=== PATIENT | female | born 1995 | race Caucasian/White ===

== ENCOUNTER → 2016-05-22 | Outpatient (CLI) | payer BC ==
[~2016-05-22] MED LIST: NORE1TAB3 PO
== END | disposition home or self-care (01) ==
LOC: C.PAPS 09:48
PROVIDERS: ATTEND Obstetrics & Gynecology
DX: Z01.419 Encounter for gynecological examination (general) (routine) without abnormal findings (principal)

== ENCOUNTER → 2016-07-24 | Outpatient (CLI) | payer OTHER | END | disposition home or self-care (01) | LOC: C.LAB 03:17 | DX: Z02.83 Encounter for blood-alcohol and blood-drug test (principal) ==

== ENCOUNTER → 2017-06-09 | Outpatient (CLI) | payer BC | END | disposition home or self-care (01) | LOC: C.LABSPEC 15:31 | PROVIDERS: ATTEND Physician Assistant | DX: Z01.419 Encounter for gynecological examination (general) (routine) without abnormal findings (principal) ==

== ENCOUNTER → 2017-06-09 | Outpatient (CLI) | payer BC | END | disposition home or self-care (01) | LOC: C.PAPS 18:04 | PROVIDERS: ATTEND Physician Assistant | DX: Z01.419 Encounter for gynecological examination (general) (routine) without abnormal findings (principal); R87.610 Atypical squamous cells of undetermined significance on cytologic smear of cervix (ASC-US) ==

== ENCOUNTER → 2017-06-12 | Outpatient (CLI) | payer BC ==
--- NOTE | 2017-06-13 07:50 | MAMMOGRAPHY REPORT ---
ULTRASOUND OF LEFT BREAST: 06/12/2017 CLINICAL HISTORY: The patient is status post ultrasound-guided biopsy of a left breast mass in 2013 which yielded a benign fibroadenoma. The patient reports that her clinician feels that the l ump has increased in size. She also reports that the lump is uncomfortable at times. COMPARISON: Comparison is made to exams dated: 01/24/2014 ultrasound biopsy and 01/05/2014 ultrasoun d - [facility]. TECHNIQUE: Real-time targeted ultrasound of the left breast was performed. FINDINGS: Real-time, high-resolution targeted ultrasound was performed of the area of the palpable leigh mp pointed out by the patient, in the left breast at approximately 1:30, 5 cm from the nipple. At th is site there is a lobulated solid hypoechoic parallel mass which measures 1.7 x 2.3 x 1.1 cm. An ec hogenic biopsy marker clip is seen within the mass. The mass is increased in size compared to the pr ior December 2013 exam, where the mass previously measured 1.6 x 0.8 x 1.3 cm. Given the interval inc rease in size, surgical excision is recommended for further evaluation. IMPRESSION: ACR BI-RADS CATEGORY 4: SUSPICIOUS - FOLLOW-UP RECOMMENDED Interval increase in size of the palpable hypoechoic mass in the left breast at approximately 1:30, n ow measuring 2.3 cm in size. The mass was previously biopsied in 2013 and yielded a benign fibroaden jason. Although this likely represents a fibroadenoma, given the interval increase in size, surgical e xcision is recommended. A phone call was made to the physician's office to confirm faxed results were received. The patient was verbally notified of the results. Racquel Monahan M.D. /:06/12/2017 09:57:27 Documentation Analyst: Racquel Monahan MD, [facility] letter sent: Abnormal 4/5 BI-RADS Code: ACR BI-RADS Category 4: Suspicious
== END | disposition home or self-care (01) ==
LOC: C.MAMM 09:31
PROVIDERS: ATTEND Physician Assistant
DX: N63.20 Unspecified lump in the left breast, unspecified quadrant (principal)

== ENCOUNTER 2021-04-10 18:58 | Inpatient (IN) ==
[2021-04-10] MEDS ORDERED: CALCIUM CARBONATE 500 MG CHEWABLE TAB PO STA (20:47)
[2021-04-10] MEDS ORDERED: CALCIUM CARBONATE 500 MG CHEWABLE TAB ONE (20:49)
--- NOTE | 2021-04-10 21:51 | History & Physical Report ---
Date of Service April 10, 2021 Assessment & Plan (1) Supervision of normal intrauterine in primigravida: Plan: Appears uncomfortable with ctx. Cervix exam per RN was 1cm, recheck was 1.5cm. Relatively unchanged from office check (fingertip). I offered patient opportunity to go home, to continue monitoring for onset of active labor. We discussed s/s active labor, and she is to call if these occur. Also offered her that we could continue to monitor her here, allow to walk the halls, and recheck cervix in a few hours. She prefers to do this, as she [place] [address] [place] [address] hospital. We discussed that onset of active labor could occur soon, or it could take some time to arrive. It is difficult to predict. History of Present Illness Chief Complaint: contractions Primary Care Provider: NO PCP 25yo @ 40 0/7, presented to L&D with complaint of contractions. Started this afternoon. Coming every 5 minutes or so, are very painful. + movement, no vaginal bleeding. No leaking fluid. Allergies Allergy/AdvReac Type Severity Reaction Status Date / Time No Known Allergies Allergy Verified 04/06/21 08:30 Home Medications Medication Instructions Recorded Confirmed Type prenat.vits,miguel,ewo-ciar-gmefo 1 tab PO DAILY 08/18/20 04/10/21 History iron 18 mg tablet 18 mg PO DAILY 03/10/21 04/10/21 History Patient History Medical History Anxiety Depression 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 1:30, 1.5 x 1cm GI bleed Surgical History H/O colposcopy with cervical biopsy 2018, mary 1 H/O left breast biopsy needle core bx, 2013, fibroadenoma H/O wisdom tooth extraction S/P colonoscopy secondary to blood in stools Family History Father Hypoglycemia Allergic rhinitis Aunt Breast cancer maternal Brother Asthma Other Anemia Dyslipidemia Denies family history of Ovarian cancer Colorectal cancer Social History Smoking Status: Former smoker Smoking End Date: 2018; Second Hand Exposure: No; Hx Alcohol Use: No Hx Substance Use: No Preferred Language: Maldivian Communication Ability: Effective 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 Beliefs That Will Affect Care: None marital status: Single marital status details: FOB: Chevy (22) [phone] Current Living Situation: Significant Other Current Living Situation Comment: lives alone current occupational status: employed current occupation: [employer] Feels Safe at Home: Yes Safety Concerns: Feels Safe At This Time Review of Systems All systems reviewed & are unremarkable except as noted in HPI & below Physical Exam Constitutional: WD/WN, vitals as above Respiratory: normal respiratory effort, lungs clear to auscultation no respiratory distress Cardiovascular: Rate/Rhythm: regular rate and regular rhythm Gastrointestinal (Abdomen): Inspection/Auscultation: abdomen normal to inspection Percussion/Palpation: abdomen soft; abdomen nontender Gravid. No s/s chorio or abruption. Skin: no rashes, warm and dry Psychiatric: A+Ox3, euthymic affect Results & Data ([facility]) Vital Signs (Past 12 Hours) Vital Signs Temp Pulse Resp BP 04/10/21 19:12 36.7 C 18 04/10/21 19:11 63 133/85 Monitoring External Monitor FHT Cat 1 [place] Q 5 min Coding Level of Care Code None Diagnoses Supervision of normal intrauterine in primigravida Z34.00
[2021-04-10] MEDS ORDERED: OXYTOCIN 30 UNITS/500 ML BAG IV PRN ×2 (22:04→22:05)
--- NOTE | 2021-04-10 22:07 | Labor Progress Brief Note ---
Date of Service April 10, 2021 Subjective Cervical change on 3rd check by RN (was 1cm on arrival, then 1.5cm, now 3cm) - same examiner. Will admit to L&D. Routine labs, efm/toco, IV. Patient desires epidural radha. Results & Data ([facility]) Vital Signs (Past 12 Hours) Vital Signs Temp Pulse Resp BP 04/10/21 19:12 36.7 C 18 04/10/21 19:11 63 133/85 Coding Level of Care Code None
[2021-04-10] MEDS ORDERED: diphenhydrAMINE 50 MG/ML VIAL IV PRN (22:27)
[2021-04-10] MEDS ORDERED: ePHEDrine sulfate 50 MG/ML AMP IV PRN (22:27)
[2021-04-10] MEDS ORDERED: NALOXONE HCL 0.4 MG/1 ML VIAL/CARP IV PRN (22:27)
[2021-04-10] MEDS ORDERED: NALBUPHINE HCL INJ 10 MG/ML AMP IV PRN (22:27)
[2021-04-10] MEDS ORDERED: ONDANSETRON INJ 2 MG/ML 2 ML VIAL IV PRN (22:27)
[2021-04-10] MEDS ORDERED: NALOXONE HCL 1 MG in SODIUM CHLORIDE 0.9% 1000ML 1,000 ML IV PRN (22:27)
[2021-04-10] MEDS ORDERED: SODIUM CHLORIDE 0.9% INJ 10 ML VIAL ONE (22:29)
[2021-04-10] MEDS ORDERED: ePHEDrine sulfate 50 MG/ML AMP ONE (22:29)
[2021-04-10] MEDS ORDERED: fentaNYL 2MCG/ML ROPIVACAINE 1.25MG/ML 100 ML BAG EPI ONE (22:29)
[2021-04-10] MEDS ORDERED: fentaNYL citrate 100 MCG/2 ML VIAL ONE (22:29)
[2021-04-10] MEDS ORDERED: BUPIVACAINE 0.25% 30 ML VIAL ONE (22:29)
--- NOTE | 2021-04-10 22:29 | Anesthesiology Consultation ---
Date of Service April 10, 2021 Assessment & Plan (1) Encounter for pre-operative examination: Chart Review Chart Review: Patient NOT seen in Pre Admission Testing and Acceptable Risk for Labor Epidural Consults Requested none History Height/Weight Height: 5 ft 5 in Weight: 83.461 kg Allergies Allergy/AdvReac Type Severity Reaction Status Date / Time No Known Allergies Allergy Verified 04/06/21 08:30 Medications Home Medications Medication Instructions Recorded Confirmed Last Taken prenat.vits,miguel,dzx-attc-fovbn 1 tab PO DAILY 08/18/20 04/10/21 04/09/21 iron 18 mg tablet 18 mg PO DAILY 03/10/21 04/10/21 03/09/21 Past Medical History Medical History Anxiety Depression 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 1:30, 1.5 x 1cm GI bleed Past Family History Family History Father Hypoglycemia Allergic rhinitis Aunt Breast cancer maternal Brother Asthma Other Anemia Dyslipidemia Denies family history of Ovarian cancer Colorectal cancer Past Surgical History Surgical History H/O colposcopy with cervical biopsy 2018, mary 1 H/O left breast biopsy needle core bx, 2013, fibroadenoma H/O wisdom tooth extraction S/P colonoscopy secondary to blood in stools Social History Smoking Status: Former smoker tobacco type: cigarettes Smoking End Date: 2018 Hx Alcohol Use: No Hx Substance Use: No Physical Exam Vital Signs Last Vital Signs Temp 36.7 C 04/10/21 19:12 Pulse 63 04/10/21 19:11 Resp 18 04/10/21 19:12 BP 133/85 04/10/21 19:11 Testing Laboratory Results 04/10/21 22:27
[2021-04-10] MEDS: LACTATED RINGER'S 1,000 ML IV PRN ×2 (22:30→23:25)
[2021-04-10 22:46] LABS: Hemoglobin 11.7 g/dL (12.0-16.0); Mean Corpuscular Hemoglobin 31.5 pg (25-34); Mean Corpuscular Hgb Conc 34.4 g/dL (32-36); Mean Corpuscular Volume 91.4 fL (80-100); Mean Platelet Volume 10.8 fL (7.4-10.4); Platelet Count 180 K/uL (130-400); RDW Standard Deviation 43.2 fL (36.4-46.3); Red Blood Count 3.72 M/uL (4.2-5.4); White Blood Count 11.56 K/uL (4.8-10.8)
[2021-04-11] MEDS: LACTATED RINGER'S 1,000 ML IV PRN ×2 (07:06→10:51)
--- NOTE | 2021-04-11 07:33 | Labor Progress Brief Note ---
Date of Service April 11, 2021 Subjective Comfortable with epidural. 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 & Plan Admission and Anticipated Discharge Date Admission Date: April 10, 2021 Results & Data ([facility]) Vital Signs (Past 12 Hours) Vital Signs Temp Pulse Resp BP Pulse Ox 04/11/21 07:32 87 100 04/11/21 07:31 86 130/73 04/11/21 07:27 88 98 04/11/21 07:24 89 L 04/11/21 07:22 92 H 99 04/11/21 07:17 92 H 100 04/11/21 07:16 93 H 124/74 04/11/21 07:11 88 100 04/11/21 07:08 88 88 L 04/11/21 07:05 87 90 04/11/21 07:04 36.8 C 20 04/11/21 07:02 85 82 L 04/11/21 07:01 86 121/74 04/11/21 07:00 87 99 04/11/21 06:55 84 100 04/11/21 06:50 85 100 04/11/21 06:46 87 117/75 04/11/21 06:43 80 99 04/11/21 06:38 81 100 04/11/21 06:33 91 H 86 L 04/11/21 06:32 83 119/75 04/11/21 06:28 88 100 04/11/21 06:23 101 H 100 04/11/21 06:18 82 96 04/11/21 06:16 85 120/71 04/11/21 06:13 82 99 04/11/21 06:08 78 98 04/11/21 06:03 78 100 04/11/21 06:01 80 123/73 04/11/21 05:58 81 100 04/11/21 05:53 73 100 04/11/21 05:49 84 87 L 04/11/21 05:48 88 99 04/11/21 05:47 83 122/70 04/11/21 05:43 84 96 04/11/21 05:38 85 98 04/11/21 05:33 81 100 04/11/21 05:31 76 121/72 04/11/21 05:28 82 100 04/11/21 05:23 93 H 100 04/11/21 05:18 90 99 04/11/21 05:17 96 H 129/71 04/11/21 05:13 91 H 85 L 04/11/21 05:08 83 95 04/11/21 05:03 82 92 04/11/21 05:01 84 109/67 04/11/21 04:58 83 92 04/11/21 04:53 85 93 04/11/21 04:48 81 93 04/11/21 04:45 91 H 110/64 04/11/21 04:43 90 93 04/11/21 04:38 78 93 04/11/21 04:33 74 93 04/11/21 04:31 86 109/66 04/11/21 04:28 83 94 04/11/21 04:23 89 94 04/11/21 04:18 83 93 04/11/21 04:16 77 111/67 04/11/21 04:13 84 93 04/11/21 04:08 82 96 04/11/21 04:03 74 99 04/11/21 04:02 75 121/72 04/11/21 03:58 78 100 04/11/21 03:53 75 100 04/11/21 03:48 71 100 04/11/21 03:47 68 133/76 04/11/21 03:43 65 100 04/11/21 03:38 74 100 04/11/21 03:33 80 100 04/11/21 03:31 71 126/73 04/11/21 03:30 72 L 04/11/21 03:28 75 97 04/11/21 03:23 76 100 04/11/21 03:18 66 100 04/11/21 03:16 65 128/79 04/11/21 03:13 62 100 04/11/21 03:08 72 96 04/11/21 03:03 73 99 04/11/21 03:01 71 130/77 04/11/21 02:58 72 99 04/11/21 02:53 74 97 04/11/21 02:48 71 100 04/11/21 02:46 71 128/75 04/11/21 02:42 67 100 04/11/21 02:41 64 89 L 04/11/21 02:34 67 83 L 04/11/21 02:32 76 129/71 04/11/21 02:31 71 89 L 04/11/21 02:29 71 100 04/11/21 02:24 70 98 04/11/21 02:23 79 88 L 04/11/21 02:18 67 100 04/11/21 02:17 69 119/68 04/11/21 02:13 74 98 04/11/21 02:12 70 88 L 04/11/21 02:08 77 97 04/11/21 02:03 91 H 97 04/11/21 02:02 96 H 115/71 04/11/21 01:58 68 93 04/11/21 01:53 67 93 04/11/21 01:48 70 93 04/11/21 01:47 71 113/59 L 04/11/21 01:43 67 91 04/11/21 01:38 67 92 04/11/21 01:33 67 92 04/11/21 01:32 67 113/58 L 04/11/21 01:28 70 92 04/11/21 01:23 69 92 04/11/21 01:18 68 93 04/11/21 01:17 66 111/61 04/11/21 01:13 66 92 04/11/21 01:08 75 92 04/11/21 01:03 74 91 04/11/21 01:01 73 114/63 04/11/21 00:58 75 95 04/11/21 00:55 82 89 L 04/11/21 00:53 77 92 04/11/21 00:48 76 92 04/11/21 00:46 80 100/59 L 04/11/21 00:45 84 87 L 04/11/21 00:43 74 91 04/11/21 00:38 74 91 04/11/21 00:36 68 88 L 04/11/21 00:33 80 90 04/11/21 00:31 72 103/58 L 04/11/21 00:28 67 89 L 04/11/21 00:23 67 89 L 04/11/21 00:18 87 94 04/11/21 00:17 73 109/63 04/11/21 00:12 74 91 04/11/21 00:07 79 94 04/11/21 00:02 89 111/63 91 04/11/21 00:01 83 82 L 04/10/21 23:57 78 93 04/10/21 23:52 84 93 04/10/21 23:47 70 94 04/10/21 23:45 74 114/64 04/10/21 23:43 77 87 L 04/10/21 23:42 77 92 04/10/21 23:37 75 93 04/10/21 23:33 76 89 L 04/10/21 23:32 72 91 04/10/21 23:30 82 115/64 04/10/21 23:28 71 119/62 04/10/21 23:27 76 94 04/10/21 23:26 77 120/63 04/10/21 23:24 77 119/63 04/10/21 23:22 73 130/65 96 04/10/21 23:20 78 121/73 04/10/21 23:18 83 143/72 H 88 L 04/10/21 23:17 76 97 04/10/21 23:15 75 138/74 04/10/21 23:12 83 139/76 96 04/10/21 23:10 77 133/83 04/10/21 23:08 81 130/81 04/10/21 23:07 77 92 04/10/21 23:06 87 93 04/10/21 23:02 82 92 04/10/21 22:57 88 94 Coding Level of Care Code None
[2021-04-11] MEDS: fentaNYL 2MCG/ML ROPIVACAINE 1.25MG/ML 100 ML BAG EPI PRN ×2 (08:09→12:49)
--- NOTE | 2021-04-11 08:47 | Labor Progress Brief Note ---
Date of Service April 11, 2021 Subjective comfortable Assessment & Plan (1) 40 weeks gestation of : Plan: arom, plan to augment labor. fetus reassuring, category one. anticipate . Admission and Anticipated Discharge Date Admission Date: April 10, 2021 Physical Exam Physical Exam: cx--/-2, no palpable bag toco--spacing q2-4min efm--150s with mod variability, accels to 160s , no decels Results & Data ([facility]) Vital Signs (Past 12 Hours) Vital Signs Temp Pulse Resp BP Pulse Ox 04/11/21 08:37 85 100 04/11/21 08:36 84 77 L 04/11/21 08:32 85 100 04/11/21 08:31 83 134/72 87 L 04/11/21 08:27 87 100 04/11/21 08:22 94 H 79 L 04/11/21 08:17 87 99 04/11/21 08:16 83 120/67 04/11/21 08:12 92 H 93 04/11/21 08:07 85 97 04/11/21 08:02 81 100 04/11/21 08:01 83 20 123/70 04/11/21 07:57 81 99 04/11/21 07:52 87 86 L 04/11/21 07:47 86 132/73 100 04/11/21 07:42 91 H 99 04/11/21 07:37 88 100 04/11/21 07:32 87 100 04/11/21 07:31 86 130/73 04/11/21 07:27 88 98 04/11/21 07:24 89 L 04/11/21 07:22 92 H 99 04/11/21 07:17 92 H 100 04/11/21 07:16 93 H 124/74 04/11/21 07:11 88 100 04/11/21 07:08 88 88 L 04/11/21 07:05 87 90 04/11/21 07:04 36.8 C 20 04/11/21 07:02 85 82 L 04/11/21 07:01 86 121/74 04/11/21 07:00 87 99 04/11/21 06:55 84 100 04/11/21 06:50 85 100 04/11/21 06:46 87 117/75 04/11/21 06:43 80 99 04/11/21 06:38 81 100 04/11/21 06:33 91 H 86 L 04/11/21 06:32 83 119/75 04/11/21 06:28 88 100 04/11/21 06:23 101 H 100 04/11/21 06:18 82 96 04/11/21 06:16 85 120/71 04/11/21 06:13 82 99 04/11/21 06:08 78 98 04/11/21 06:03 78 100 04/11/21 06:01 80 123/73 04/11/21 05:58 81 100 04/11/21 05:53 73 100 04/11/21 05:49 84 87 L 04/11/21 05:48 88 99 04/11/21 05:47 83 122/70 04/11/21 05:43 84 96 04/11/21 05:38 85 98 04/11/21 05:33 81 100 04/11/21 05:31 76 121/72 04/11/21 05:28 82 100 04/11/21 05:23 93 H 100 04/11/21 05:18 90 99 04/11/21 05:17 96 H 129/71 04/11/21 05:13 91 H 85 L 04/11/21 05:08 83 95 04/11/21 05:03 82 92 04/11/21 05:01 84 109/67 04/11/21 04:58 83 92 04/11/21 04:53 85 93 04/11/21 04:48 81 93 04/11/21 04:45 91 H 110/64 04/11/21 04:43 90 93 04/11/21 04:38 78 93 04/11/21 04:33 74 93 04/11/21 04:31 86 109/66 04/11/21 04:28 83 94 04/11/21 04:23 89 94 04/11/21 04:18 83 93 04/11/21 04:16 77 111/67 04/11/21 04:13 84 93 04/11/21 04:08 82 96 04/11/21 04:03 74 99 04/11/21 04:02 75 121/72 04/11/21 03:58 78 100 04/11/21 03:53 75 100 04/11/21 03:48 71 100 01/26/22 03:47 68 133/76 04/11/21 03:43 65 100 04/11/21 03:38 74 100 04/11/21 03:33 80 100 04/11/21 03:31 71 126/73 04/11/21 03:30 72 L 04/11/21 03:28 75 97 04/11/21 03:23 76 100 04/11/21 03:18 66 100 04/11/21 03:16 65 128/79 04/11/21 03:13 62 100 04/11/21 03:08 72 96 04/11/21 03:03 73 99 04/11/21 03:01 71 130/77 04/11/21 02:58 72 99 04/11/21 02:53 74 97 04/11/21 02:48 71 100 04/11/21 02:46 71 128/75 04/11/21 02:42 67 100 04/11/21 02:41 64 89 L 04/11/21 02:34 67 83 L 04/11/21 02:32 76 129/71 04/11/21 02:31 71 89 L 04/11/21 02:29 71 100 04/11/21 02:24 70 98 04/11/21 02:23 79 88 L 04/11/21 02:18 67 100 04/11/21 02:17 69 119/68 04/11/21 02:13 74 98 04/11/21 02:12 70 88 L 04/11/21 02:08 77 97 04/11/21 02:03 91 H 97 04/11/21 02:02 96 H 115/71 04/11/21 01:58 68 93 04/11/21 01:53 67 93 04/11/21 01:48 70 93 04/11/21 01:47 71 113/59 L 04/11/21 01:43 67 91 04/11/21 01:38 67 92 04/11/21 01:33 67 92 04/11/21 01:32 67 113/58 L 04/11/21 01:28 70 92 04/11/21 01:23 69 92 04/11/21 01:18 68 93 04/11/21 01:17 66 111/61 04/11/21 01:13 66 92 04/11/21 01:08 75 92 04/11/21 01:03 74 91 04/11/21 01:01 73 114/63 04/11/21 00:58 75 95 04/11/21 00:55 82 89 L 04/11/21 00:53 77 92 04/11/21 00:48 76 92 04/11/21 00:46 80 100/59 L 04/11/21 00:45 84 87 L 04/11/21 00:43 74 91 04/11/21 00:38 74 91 04/11/21 00:36 68 88 L 04/11/21 00:33 80 90 04/11/21 00:31 72 103/58 L 04/11/21 00:28 67 89 L 04/11/21 00:23 67 89 L 04/11/21 00:18 87 94 04/11/21 00:17 73 109/63 04/11/21 00:12 74 91 04/11/21 00:07 79 94 04/11/21 00:02 89 111/63 91 04/11/21 00:01 83 82 L 04/10/21 23:57 78 93 04/10/21 23:52 84 93 04/10/21 23:47 70 94 04/10/21 23:45 74 114/64 04/10/21 23:43 77 87 L 04/10/21 23:42 77 92 04/10/21 23:37 75 93 04/10/21 23:33 76 89 L 04/10/21 23:32 72 91 04/10/21 23:30 82 115/64 04/10/21 23:28 71 119/62 04/10/21 23:27 76 94 04/10/21 23:26 77 120/63 04/10/21 23:24 77 119/63 04/10/21 23:22 73 130/65 96 04/10/21 23:20 78 121/73 04/10/21 23:18 83 143/72 H 88 L 04/10/21 23:17 76 97 04/10/21 23:15 75 138/74 04/10/21 23:12 83 139/76 96 04/10/21 23:10 77 133/83 04/10/21 23:08 81 130/81 04/10/21 23:07 77 92 04/10/21 23:06 87 93 04/10/21 23:02 82 92 04/10/21 22:57 88 94 Coding Level of Care Code None Diagnoses 40 weeks gestation of Z3A.40
[2021-04-11] MEDS ORDERED: Nursing to Pharmacy Communication SCH (09:45)
[2021-04-11] MEDS ORDERED: BUPIVACAINE 0.25% 30 ML VIAL ONE (10:50)
--- NOTE | 2021-04-11 12:49 | Labor Progress Brief Note ---
Date of Service April 11, 2021 Subjective Got very painful with ant lip, dosed and improved. Assessment & Plan (1) 40 weeks gestation of : Plan: Will begin second stage pushing. Fetus overall reassuring. Anticipate . suspect op. Admission and Anticipated Discharge Date Admission Date: April 10, 2021 Physical Exam Physical Exam: cx--c/c/+1-2, lop toco--q2-3min, pit at 1 efm--145 with mod variaiblity, small accels, rare variable Results & Data ([facility]) Vital Signs (Past 12 Hours) Vital Signs Temp Pulse Resp BP Pulse Ox 04/11/21 12:46 92 H 133/83 89 L 04/11/21 12:45 85 95 04/11/21 12:40 87 97 04/11/21 12:35 84 95 04/11/21 12:31 77 135/79 04/11/21 12:30 87 92 04/11/21 12:25 85 97 04/11/21 12:24 89 88 L 04/11/21 12:20 87 95 04/11/21 12:17 87 132/83 04/11/21 12:15 86 98 04/11/21 12:14 93 H 88 L 04/11/21 12:10 84 96 04/11/21 12:05 88 96 04/11/21 12:02 79 137/83 04/11/21 12:00 83 92 04/11/21 11:55 83 95 04/11/21 11:50 93 H 88 L 04/11/21 11:47 90 137/92 04/11/21 11:45 93 04/11/21 11:40 88 94 04/11/21 11:35 82 93 04/11/21 11:31 85 136/81 04/11/21 11:30 87 99 04/11/21 11:25 88 95 04/11/21 11:20 81 95 04/11/21 11:16 79 88 L 04/11/21 11:15 79 96 04/11/21 11:12 36.8 C 20 04/11/21 11:10 86 97 04/11/21 11:05 77 98 04/11/21 11:02 95 H 79 L 04/11/21 11:01 95 H 141/84 H 04/11/21 11:00 94 H 84 L 04/11/21 10:57 85 L 04/11/21 10:55 88 87 L 04/11/21 10:54 85 138/70 04/11/21 10:51 96 H 83 L 04/11/21 10:48 98 H 96 04/11/21 10:46 85 143/70 H 04/11/21 10:44 84 87 L 04/11/21 10:43 97 H 98 04/11/21 10:39 82 88 L 04/11/21 10:38 84 91 04/11/21 10:33 80 95 04/11/21 10:31 81 139/77 04/11/21 10:28 84 100 04/11/21 10:23 85 93 04/11/21 10:21 83 89 L 04/11/21 10:18 98 H 100 04/11/21 10:17 109 H 154/97 H 04/11/21 10:13 84 82 L 04/11/21 10:08 85 83 L 04/11/21 10:03 91 H 134/90 89 L 04/11/21 09:58 93 H 97 04/11/21 09:53 93 H 95 04/11/21 09:48 90 94 04/11/21 09:46 90 132/83 04/11/21 09:43 93 H 94 04/11/21 09:42 36.9 C 20 04/11/21 09:38 89 94 04/11/21 09:33 87 98 04/11/21 09:32 87 126/89 04/11/21 09:29 85 88 L 04/11/21 09:28 84 94 04/11/21 09:23 84 96 04/11/21 09:18 80 95 04/11/21 09:16 81 112/58 L 04/11/21 09:13 83 99 04/11/21 09:09 83 85 L 04/11/21 09:08 84 98 04/11/21 09:03 81 98 04/11/21 09:01 81 112/59 L 04/11/21 08:58 84 99 04/11/21 08:52 91 H 97 04/11/21 08:50 98 H 87 L 04/11/21 08:47 88 100 04/11/21 08:46 86 120/69 04/11/21 08:42 83 86 L 04/11/21 08:37 85 100 04/11/21 08:36 84 77 L 04/11/21 08:32 85 100 04/11/21 08:31 83 134/72 87 L 04/11/21 08:27 87 100 04/11/21 08:22 94 H 79 L 04/11/21 08:17 87 99 04/11/21 08:16 83 120/67 04/11/21 08:12 92 H 93 04/11/21 08:07 85 97 04/11/21 08:02 81 100 04/11/21 08:01 83 20 123/70 04/11/21 07:57 81 99 04/11/21 07:52 87 86 L 04/11/21 07:47 86 132/73 100 04/11/21 07:42 91 H 99 04/11/21 07:37 88 100 04/11/21 07:32 87 100 04/11/21 07:31 86 130/73 04/11/21 07:27 88 98 04/11/21 07:24 89 L 04/11/21 07:22 92 H 99 04/11/21 07:17 92 H 100 04/11/21 07:16 93 H 124/74 04/11/21 07:11 88 100 04/11/21 07:08 88 88 L 04/11/21 07:05 87 90 04/11/21 07:04 36.8 C 20 04/11/21 07:02 85 82 L 04/11/21 07:01 86 121/74 04/11/21 07:00 87 99 04/11/21 06:55 84 100 04/11/21 06:50 85 100 04/11/21 06:46 87 117/75 04/11/21 06:43 80 99 04/11/21 06:38 81 100 04/11/21 06:33 91 H 86 L 04/11/21 06:32 83 119/75 04/11/21 06:28 88 100 04/11/21 06:23 101 H 100 04/11/21 06:18 82 96 04/11/21 06:16 85 120/71 04/11/21 06:13 82 99 04/11/21 06:08 78 98 04/11/21 06:03 78 100 04/11/21 06:01 80 123/73 04/11/21 05:58 81 100 04/11/21 05:53 73 100 04/11/21 05:49 84 87 L 04/11/21 05:48 88 99 04/11/21 05:47 83 122/70 04/11/21 05:43 84 96 04/11/21 05:38 85 98 04/11/21 05:33 81 100 04/11/21 05:31 76 121/72 04/11/21 05:28 82 100 04/11/21 05:23 93 H 100 04/11/21 05:18 90 99 04/11/21 05:17 96 H 129/71 04/11/21 05:13 91 H 85 L 04/11/21 05:08 83 95 04/11/21 05:03 82 92 04/11/21 05:01 84 109/67 04/11/21 04:58 83 92 04/11/21 04:53 85 93 04/11/21 04:48 81 93 04/11/21 04:45 91 H 110/64 04/11/21 04:43 90 93 04/11/21 04:38 78 93 04/11/21 04:33 74 93 04/11/21 04:31 86 109/66 04/11/21 04:28 83 94 04/11/21 04:23 89 94 04/11/21 04:18 83 93 04/11/21 04:16 77 111/67 04/11/21 04:13 84 93 04/11/21 04:08 82 96 04/11/21 04:03 74 99 04/11/21 04:02 75 121/72 04/11/21 03:58 78 100 04/11/21 03:53 75 100 04/11/21 03:48 71 100 04/11/21 03:47 68 133/76 04/11/21 03:43 65 100 04/11/21 03:38 74 100 04/11/21 03:33 80 100 04/11/21 03:31 71 126/73 04/11/21 03:30 72 L 04/11/21 03:28 75 97 04/11/21 03:23 76 100 04/11/21 03:18 66 100 04/11/21 03:16 65 128/79 04/11/21 03:13 62 100 04/11/21 03:08 72 96 04/11/21 03:03 73 99 04/11/21 03:01 71 130/77 04/11/21 02:58 72 99 04/11/21 02:53 74 97 04/11/21 02:48 71 100 04/11/21 02:46 71 128/75 04/11/21 02:42 67 100 04/11/21 02:41 64 89 L 04/11/21 02:34 67 83 L 04/11/21 02:32 76 129/71 04/11/21 02:31 71 89 L 04/11/21 02:29 71 100 04/11/21 02:24 70 98 04/11/21 02:23 79 88 L 04/11/21 02:18 67 100 04/11/21 02:17 69 119/68 04/11/21 02:13 74 98 04/11/21 02:12 70 88 L 04/11/21 02:08 77 97 04/11/21 02:03 91 H 97 04/11/21 02:02 96 H 115/71 04/11/21 01:58 68 93 04/11/21 01:53 67 93 04/11/21 01:48 70 93 04/11/21 01:47 71 113/59 L 04/11/21 01:43 67 91 04/11/21 01:38 67 92 04/11/21 01:33 67 92 04/11/21 01:32 67 113/58 L 04/11/21 01:28 70 92 04/11/21 01:23 69 92 04/11/21 01:18 68 93 04/11/21 01:17 66 111/61 04/11/21 01:13 66 92 04/11/21 01:08 75 92 04/11/21 01:03 74 91 04/11/21 01:01 73 114/63 04/11/21 00:58 75 95 04/11/21 00:55 82 89 L 04/11/21 00:53 77 92 04/11/21 00:48 76 92 Coding Level of Care Code None Diagnoses 40 weeks gestation of Z3A.40
[2021-04-11] MEDS ORDERED: IBUPROFEN 600 MG TAB PO PRN (13:51)
[2021-04-11] MEDS ORDERED: bisacodyL 10 MG SUPP PR PRN (13:51)
[2021-04-11] MEDS ORDERED: BENZOCAINE 20% AER SPR 82.5 GM CAN EXT PRN (13:51)
[2021-04-11] MEDS ORDERED: OXYTOCIN 30 UNITS/500 ML BAG IV PRN (13:51)
[2021-04-11] MEDS ORDERED: ACETAMINOPHEN 325 MG TAB PO PRN (13:51)
[2021-04-11] MEDS ORDERED: HYDROCORTISONE ACETATE 25 MG SUPP PR PRN (13:51)
[2021-04-11] MEDS ORDERED: oxyCODONE/ACETAMINOPHEN 5mg/325mg TAB PO PRN (13:51)
[2021-04-11] MEDS ORDERED: DIPHTHERIA/TETANUS/PERTUSSIS 0.5 ML SYR/VIAL IM ONE (13:51)
[2021-04-11] MEDS ORDERED: SUPERCREAM 0.870% 15 GM JAR EXT PRN (13:51)
--- NOTE | 2021-04-11 13:56 | Delivery Summary ---
Vaginal Delivery Summary Date of Service April 11, 2021 Vaginal Delivery Summary and 1st Degree LAC Pre-operative Diagnosis: at 40 1/7 labor Post-operative Diagnosis: same meconium Procedure: epidural pitocin augmentation first degree laceration and repair EBL: 450cc Anesthesia: epidural Procedure: The patient presented to labor and delivery in active labor. She was admitted and underwent an epidural. She then had arom for clear appearing fluid, which over the course of the rest of the labor, became meconium . She progressed to c/c/+2. The patient pushed with good effort to deliver a viable male in jorge l position. The rest of the infant was then quickly delivered with a nuchal and body cord. The nose and mouth were bulb suctioned. The baby was vigorous and the infant was placed in the maternal abdomen for drying and a ttention. Cord was clamped and cut at one minute of life. Cord blood and segment obtained. I was then called away to another delivery. When I returned, the Placenta delivered spontaneous, intact with a three vessel cord. Cervix/sulci/rectum were intact. A first degree perineal laceration was repaired in the normal standard fashion. Hemostasis obtained with dilute pitocin and fundal massage. Apgars were pending. Mother and baby doing well at the end of the delivery. [facility] Vaginal Delivery Charge Delivery Type Details: and 1st Degree LAC
--- NOTE | 2021-04-11 15:22 | Anesthesia Procedure Note ---
Date of Service April 11, 2021 Anesthesia Post Epidural Note Vital Signs Vital Signs: Temp Pulse Resp BP Pulse Ox 98.2 F 93 H 20 128/80 95 04/11/21 11:12 04/11/21 15:16 04/11/21 11:12 04/11/21 15:16 04/11/21 13:50 Pain Intensity Lower Abdomen: Pain Intensity: 4 Notes Mental Status: alert / awake / arousable and participated in evaluation Nausea / Vomiting: adequately controlled Pain: adequately controlled Airway Patency, RR, SpO2: stable & adequate BP & HR: stable & adequate Hydration State: stable & adequate Neuraxial Anesthesia: was administered and sensory block is resolving Anesthetic Complications: no major complications apparent and Pt Satisfied with anesthetic care Epidural: Removed without complications and With tip intact
[2021-04-11] MEDS: DOCUSATE SODIUM 100 MG CAP PO SCH (20:59)
--- NOTE | 2021-04-12 06:20 | Obstetrical Progress Note ---
Date of Service <Varun Thompson DO - Last Filed: 04/12/21 07:19> April 12, 2021 Assessment & Plan <Varun Thompson DO - Last Filed: 04/12/21 07:19> (1) Encounter for care and examination after delivery: 25 yo post day 1 from vaginal delivery, doing well. -Continue routine post care. -vital signs reviewed and WNL. (Tmax 36.9) -Blood type O+, GBS Negative, Rubella Immune -Encourage ambulation, monitor and control pain with Motrin, tylenol PRN, resume regular diet, monitor lochia. -encourage breast feeding. -Discussed discharge with patient. Patient would like to go home today if possible. Patient will follow up with Dr. Peterson in 6 weeks for post visit. <Huma Peterson MD, FACOG - Last Filed: 04/12/21 07:37> (1) Encounter for care and examination after delivery: Subjective <Varun Thompson DO - Last Filed: 04/12/21 07:19> Ambulation: ambulating normally Voiding: no voiding problems Passing Gas:: Yes Diet Tolerance:: regular diet Lochia:: Small Feeding Type:: breast feeding Current Pain Level(1-10): 0 Review of Systems Denies fever, chills, sweats Denies shortness of breath, difficulty breathing, chest pain, palpitations, chest pressure. Denies breast pain. Denies dysuria. Denies headache or changes in vision Physical Exam <Varun Thompson DO - Last Filed: 04/12/21 07:19> General: Alert, oriented. No acute distress. Cardiac: Regular rate and rhythm, no murmurs/rubs/gallops. Respiratory: Clear to auscultation bilaterally a/p, no wheezes/rales/rhonchi. No increased work of breathing. Symmetrical chest rise. No respiratory distress. Abdomen: Soft, nontender, nondistended. Bowel sounds present. Uterus: Uterine fundus firm, palpable 3 cm below umbilicus. Lower Extremities: No lower extremity edema or swelling. No deep calf pain. Emma's negative bilaterally Results & Data ([facility]) <Varun Thompson DO - Last Filed: 04/12/21 07:19> Vital Signs (Past 12 Hours) Vital Signs Temp Pulse Resp BP 04/12/21 03:43 36.4 C L 80 16 116/64 04/12/21 00:00 36.8 C 80 20 135/74 04/11/21 20:00 36.5 C 87 18 139/84 <Huma Peterson MD, FACOG - Last Filed: 04/12/21 07:37> Co-Signing Physician Notes Resident Physician Supervision Note: I interviewed and examined the patient. Discussed with Dr. Thompson and agree with findings and plan as documented in the note. Any exceptions or clarifications are listed here: Doing well. Would like d/c today. Instructions given. Documented By: Huma Peterson MD, FACOG Resident Activity Tracking <Varun Thompson DO - Last Filed: 04/12/21 07:19> Resident Involvement: Resident Care Provided Care Provided: OB Delivery
[2021-04-12 06:54] LABS: Hematocrit (blood only) 25.5 % (37-47); Hemoglobin 8.4 g/dL (12.0-16.0)
[2021-04-12] MEDS: DOCUSATE SODIUM 100 MG CAP PO SCH ×2 (07:54→21:18)
[2021-04-12] MEDS: PRENATAL VITAMIN 1 TAB PO SCH (07:54)
[2021-04-12] MEDS ORDERED: bisacodyL 5 MG TABEC PO SCH (20:00)
--- NOTE | 2021-04-13 06:57 | Obstetrical Progress Note ---
Date of Service <Varun Thompson DO - Last Filed: 04/13/21 07:53> April 13, 2021 Assessment & Plan <Varun Thompson DO - Last Filed: 04/13/21 07:53> (1) Encounter for care and examination after delivery: 25 yo post day 2 from vaginal delivery, doing well. -Continue routine post care. -vital signs reviewed and WNL. (Tmax 36.9) -Blood type O+, GBS Negative, Rubella Immune -Encourage ambulation, monitor and control pain with Motrin, tylenol PRN, resume regular diet, monitor lochia. -encourage breast feeding. -Patient waiting on pediatrics to clear baby for discharge. Otherwise went over discharge instructions yesterday with Dr. Peterson. <Bob Dodson MD - Last Filed: 04/16/21 08:20> (1) Encounter for care and examination after delivery: Subjective <Varun Thompson DO - Last Filed: 04/13/21 07:53> Ambulation: ambulating normally Voiding: no voiding problems Passing Gas:: Yes Diet Tolerance:: regular diet Lochia:: Small Feeding Type:: breast feeding Current Pain Level(1-10): 0 Review of Systems Denies fever, chills, sweats Denies shortness of breath, difficulty breathing, chest pain, palpitations, chest pressure. Denies breast pain. Denies dysuria. Denies headache or changes in vision Physical Exam <Varun Thompson DO - Last Filed: 04/13/21 07:53> General: Alert, oriented. No acute distress. Cardiac: Regular rate and rhythm, no murmurs/rubs/gallops. Respiratory: Clear to auscultation bilaterally a/p, no wheezes/rales/rhonchi. No increased work of breathing. Symmetrical chest rise. No respiratory distress. Abdomen: Soft, nontender, nondistended. Bowel sounds present. Uterus: Uterine fundus firm, palpable 3 cm below umbilicus. Lower Extremities: No lower extremity edema or swelling. No deep calf pain. Emma's negative bilaterally Results & Data ([facility]) <Varun Thompson - Last Filed: 04/13/21 07:53> Vital Signs (Past 12 Hours) Vital Signs Temp Pulse Resp BP Pulse Ox 04/13/21 00:35 36.7 C 77 16 122/78 96 04/12/21 21:15 36.7 C 89 16 125/85 96 <Bob Dodson MD - Last Filed: 04/16/21 08:20> Co-Signing Physician Notes Patient seen and evaluated and agree with the above findings and plan. Stable for discharge Resident Activity Tracking <Varun Thompson DO - Last Filed: 04/13/21 07:53> Resident Involvement: Resident Care Provided Care Provided: OB Delivery
[2021-04-13] MEDS: DOCUSATE SODIUM 100 MG CAP PO SCH (08:04)
[2021-04-13] MEDS: PRENATAL VITAMIN 1 TAB PO SCH (08:04)
== END 2021-04-13 14:35 | disposition home or self-care (01) | DRG 807 ==
LOC: OPB 18:58 → 4S1 19:03 → 4S2 04-11 17:09

== ENCOUNTER 2023-06-29 10:59 | Inpatient (IN) ==
--- NOTE | 2023-06-29 11:47 | History & Physical Report ---
Date of Service June 29, 2023 Assessment & Plan (1) Hyperemesis gravidarum: (2) with 8 completed weeks gestation: Plan Given she has had manyEd evaluations and IV fluids/antiemetics, essentially every other day, and it does not seem to be managing her mcc, she was o ffered admission and she accepts. She understands that this is likely going to be a longer term admission at least 2-3 days. Plan IVF fluid replacement NS +100 of thaimine x 2 liters then change to maint of D5/1/2 nl saline with 20 K at 150cc/hr. will add mvi daily. Plan bowel rest with npo status for now IV zofran, reglan, benadryl and pepcid. Once gets to a place where she is not dry heaving/vomiting and able to swallow her spit, consider slow advance of diet and attempt at po antiemtics. If we are unable to achieve this and at least some po intake, may need to consider picc line and at home iv fluids and antiemetics. Explained this all to the patient , she understands the plans. Questions answered. Admission and Anticipated Discharge Date Admission Date: June 29, 2023 History of Present Illness Chief Complaint: continued nausea and vomiting Primary Care Provider: Saritha Morales MD, FACOG Patient is a 27yowf with iup at 8 0/7 who calls me this am in tears. she has been having terrible issues with n/v/d. She has been in the ED now 4 times since June. the last was yesterday. She was hydrated and given antiemetics and then sent home. She did not keep any solid food down before leaving. She was able to eat a very small amount of chicken noodle soup at 7:30 last night and then went directly to bed. she has been unable to keep anything else down since that time. Can't even swallow her spit without dry heaving. We had a plan in place to have her get ivf m/w/f. she last got on . She has been on multiple oral antiemetics throughout this --Bonjesta (make her feel worse and very crampy), SL zofran (worked for a bit but does not seem to be helping any longer), pr phenergan (when she last took it, gave her restless leg), reglan po. She does not feel like she could keep any oral pain meds down at this point as she can't even swallow. Patient had n/v with her last but was able to manage on po and Bonjesta was helpful. It lasted until about 14-15 weeks. I discussed with the patient what she thought we should do. Offered continued attempts at outpatient management. Back to the ED or admission. She does not feel continued intermittent visits to the ED will be helpful at this point and notes she feels she needs to go back again. Offered direct admission and she accepts. She denies any other concerns. Her labs yesterday were all wnl, no electrolye abnl. Past Pregnancies Del. Date GA wks Lbr Lgth wt Sex Type del Anes Place Del Prov ? Comment 04/11/21 40 7-11 M Epidural [facility] Dr. Nicholas Sierra OB Labs: Blood Type O Positive 08/23/20 Antibody Screen NEGATIVE 08/23/20 Hemoglobin 13.2 g/dl (12.0-16.0) 06/24/23 Hematocrit 36.3 % (37.0-47.0) L 06/24/23 Mean Corpuscular Volume 82.9 fL (80.0-100.0) 06/24/23 Platelet Count 222 K/uL (130-400) 06/24/23 Rubella IgG Antibody Immune (Immune) 08/23/20 Rapid Plasma Reagin Nonreactive (Nonreactive) 08/23/20 Hepatitis B Surface Antigen Neg (Neg) 08/23/20 Hepatitis B Surface Antigen. Pending 06/26/23 Hepatitis C Antibody (EIA) Pending 06/26/23 HIV (1&2) Ab and P24 Ag, 4th Gener Neg (Neg) 08/23/20 HIV (1&2) Ag and Ab Confirmation Pending 06/26/23 Glucose 1 Hour 50 gm Load 86 mg/dl (70-130) 01/12/21 OB Optional Labs: Chlamydia trachomatis RNA NOT DETECTED (NOT DETECTED) 08/23/20 Neisseria gonorrhoeae RNA NOT DETECTED (NOT DETECTED) 08/23/20 Thyroid Stimulating Hormone (TSH) 0.623 uIu/ml (0.300-4.500) 01/30/20 Allergies Allergy/AdvReac Type Severity Reaction Status Date / Time anne Allergy Intermediate Itching Verified 06/26/23 11:26 No Known Drug Allergies Allergy Verified 06/26/23 11:26 Home Medications Medication Instructions Recorded Confirmed Type vit no.95-ferrous 1 tab PO DAILY 06/17/23 06/28/23 History fumarate 28 mg-folic acid 800 mcg tablet () promethazine 25 mg rectal 25 mg ND Q8H PRN vomiting #24 ea 06/22/23 06/28/23 Rx suppository diphenhydramine HCl 25 mg chewable 25 mg PO TID PRN nausea and 06/23/23 06/28/23 Rx tablet (Allergy Relief vomiting #1 tab (diphenhydramine)) doxylamine 20 mg-pyridoxine 20 mg 1 tab PO BID #60 tabs 06/23/23 06/28/23 Rx tablet,immediate and delayed release (Bonjesta) metoclopramide HCl 10 mg tablet 10 mg PO Q6H PRN nausea and 06/26/23 06/28/23 Rx (Reglan) vomiting #30 tabs Patient History Medical History (Updated 06/29/23 @ 12:00 by Huma Peterson MD, FACOG) Hyperemesis gravidarum Varicella vaccination Depression COVID-19 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 1:30, 1.5 x 1cm Anxiety GI bleed Surgical History S/P breast augmentation H/O colposcopy with cervical biopsy 2018, mary 1 H/O left breast biopsy needle core bx, 2013, fibroadenoma S/P colonoscopy secondary to blood in stools H/O wisdom tooth extraction Family History Father Hypoglycemia Allergic rhinitis Aunt Breast cancer maternal Brother Asthma Other Anemia Dyslipidemia Denies family history of Ovarian cancer Colorectal cancer Social History Smoking Status: Current some day smoker Tobacco Type: Cigarettes Second Hand Exposure: No; Do You Dip or Chew Tobacco: No; Hx Alcohol Use: No Hx Substance Use: No Preferred Language: Indonesian Communication Ability: Effective Traffic Control Officer Required: No Beliefs That Will Affect Care: None marital status: marital status details: Chevy Sanchez(25) [phone] Current Living Situation: Significant Other Current Living Situation Comment: lives with spouse, child, step son, no pets current occupational status: employed current occupation: [employer] Feels Safe at Home: Yes Assistive Devices: None OB History Past Pregnancies Del. Date GA wks Lbr Lgth wt Sex Type del Anes Place Del Prov ? Comment 04/11/21 40 7-11 M Epidural [facility] Dr. Nicholas Sierra Physical Exam Constitutional: WD/WN, vitals as above Neck: trachea midline, no thyromegaly Gastrointestinal (Abdomen): soft, nt, nd, no masses Psychiatric: A+Ox3, euthymic affect Coding Level of Care Code 35654 INT INP/OBS CARE 1/40MIN Diagnoses Hyperemesis gravidarum O21.0 with 8 completed weeks gestation Z3A.08
[2023-06-29 12:08] LABS: Basophils # (auto) 0.02 K/uL (0.00-0.20); Basophils % (auto) 0.3 %; Eosinophils # (auto) 0.05 K/uL (0.00-0.50); Eosinophils % (auto) 0.7 %; Hematocrit (blood only) 33.8 % (37.0-47.0); Hemoglobin 11.9 g/dl (12.0-16.0); Immature Granulocytes # (auto) 0.01 K/uL (0.01-0.20); Immature Granulocytes % (auto) 0.1 %; Lymphocytes # (auto) 1.64 K/uL (1.20-3.40); Lymphocytes % (auto) 22.4 %; Mean Corpuscular Hemoglobin 30.4 pg (25.0-34.0); Mean Corpuscular Hgb Conc 35.2 g/dL (32.0-36.0); Mean Corpuscular Volume 86.2 fL (80.0-100.0); Mean Platelet Volume 9.4 fL (9.4-12.4); Monocytes # (auto) 0.39 K/uL (0.11-0.59); Monocytes % (auto) 5.3 %; Neutrophils # (auto) 5.22 K/uL (1.40-6.50); Neutrophils % (auto) 71.2 %; Platelet Count 195 K/uL (130-400); RDW Coefficient of Variation 12.3 % (11.5-14.5); RDW Standard Deviation 38.5 fL (36.4-46.3); Red Blood Count 3.92 M/uL (4.20-5.40); White Blood Count 7.33 K/ul (4.8-10.8)
[2023-06-29 12:26] LABS: Albumin Level 4.2 gm/dl (3.4-5.0); Anion Gap 7 (3-11); Bilirubin,Total 0.9 mg/dl (0.2-1.0); Calcium 8.9 mg/dl (8.6-10.3); Carbon Dioxide 25 mmol/L (21-32); Chloride 102 mmol/L (98-107); Magnesium 1.9 mg/dl (1.7-2.4); Potassium 3.6 mmol/L (3.5-5.1); Sodium 134 mmol/L (136-145)
[2023-06-29 12:32] LABS: Alanine Aminotransferase 13 U/L (7-52); Albumin Globulin Ratio 1.6 (0.9-2); Alkaline Phosphatase 28 U/L (34-104); Aspartate Aminotransferase 15 U/L (13-39); BUN Creatinine Ratio 25.5 (10-20); Blood Urea Nitrogen 14 mg/dl (6-23); Est GFR (African American) 147.9 ml/min; Est GFR (Non-African American) 127.6 ml/min; Globulin 2.6 gm/dl (2.5-4.0); Glucose 93 mg/dl (70-99(Fasting)); Total Protein 6.8 gm/dl (6.0-8.3)
[2023-06-29 12:44] LABS: Thyroid Stimulating Hormone 0.334 uIu/ml (0.300-4.500)
[2023-06-29 12:46] LABS: T4 Free Thyroxine 0.79 ng/dl (0.61-1.60)
[2023-06-29 12:54] LABS: Phosphorus 3.8 mg/dl (2.5-4.9)
[2023-06-29] MEDS: FAMOTIDINE 20MG IV PUSH 20 MG/5 ML SYR IV SCH (12:59)
[2023-06-29] MEDS: METOCLOPRAMIDE HCL INJ 5 MG/ML 2 ML VIAL IV SCH (13:01)
[2023-06-29] MEDS: SODIUM CHLORIDE 0.9% IV SCH (13:07)
[2023-06-29] MEDS: THIAMINE HCL IV SCH (13:07)
[2023-06-29] MEDS: diphenhydrAMINE 50 MG/ML VIAL IV SCH (13:27)
[2023-06-29] MEDS: ONDANSETRON INJ 2 MG/ML 2 ML VIAL IV SCH (14:19)
[2023-06-29] MEDS ORDERED: diphenhydrAMINE 50 MG/ML VIAL IV SCH (16:00)
[2023-06-29] MEDS: D5W AND 1/2NSS + 20MEQ KCL 20 MEQ/1,000 ML BAG IV SCH (18:20)
--- NOTE | 2023-06-30 06:59 | Obstetrical Progress Note ---
Date of Service June 30, 2023 Assessment & Plan (1) Hyperemesis gravidarum: Plan Feeling the best she has for awhile. My plan is to remain npo for 24 hours. Then can carefully start so po and see if she tolerates. If so, can transition to po antiemetics. Regimen remains zofran, reglan, benadryl and pepcid. Admission and Anticipated Discharge Date Admission Date: June 29, 2023 Subjective Patient is improved overnight. She notes her nausea is significantly improved. She has had no emesis overnight. She notes that she is able to swallow her own secretions and it is not causing nausea. She has had minimal sips/chips overnight. She notes no cramping or vaginal bleeding. Physical Exam Constitutional: WD/WN, vitals as above Cardiovascular: Extremities: no calf tenderness and no edema Gastrointestinal (Abdomen): soft, nt, nd Psychiatric: A+Ox3, euthymic affect Results & Data Vital Signs (Past 12 Hours) Vital Signs Temp Pulse Resp BP Pulse Ox O2 Del Method 06/30/23 01:01 36.5 C 70 16 87/50 L 100 Room Air 06/29/23 19:40 36.9 C 86 16 94/48 L 94 Room Air PG Care Time/CCT Total # of Minutes Spent Total Time Spent with Patient: Total time spent is greater than 50% in coordination of care (as documented) at patient's floor/unit and/or counseling patient: Coding Level of Care Code 91318 SUB INP/OBS CARE 1/25MIN Diagnoses Hyperemesis gravidarum O21.0
[2023-06-30] MEDS: [UNRECOGNIZED DRUG - OTHER] IV SCH (08:59)
[2023-06-30] MEDS: POTASSIUM CHLORIDE IV SCH (08:59)
[2023-06-30] MEDS: MULTI VITAMIN INFUSION IV SCH (08:59)
[2023-06-30] MEDS: D5W IV SCH (08:59)
--- NOTE | 2023-07-01 06:27 | Obstetrical Progress Note ---
Date of Service July 01, 2023 Assessment & Plan (1) Hyperemesis gravidarum: Plan Currently on clear liquid, tolerating well, no emesis Will progress diet as tolerated Regimen remains zofran, reglan, benadryl and pepcid. Admission and Anticipated Discharge Date Admission Date: June 29, 2023 Supervising Physician Co-Signing Physician Notes plan to incraese to [facility] today, will keep meds IV for now Subjective She feel better overall. Currently on clear liquid Only nausea yesterday after eating but no emesis She denied any vaginal bleeding or pelvic pain Review of Systems Review of Systems: All systems reviewed & are unremarkable except as noted in HPI & below Physical Exam Physical Exam: General: patient resting comfortably, NAD, non-toxic in appearance, AA&O x 4, answers questions appropriately. Skin: warm, dry, intact HEENT: NC/AT, anicteric sclera, conjunctiva without injection, moist mucus membranes Heart: +S1/S2, regular, no m/r/g Lungs: equal air entry bilaterally, no rales/rhonchi/wheezes Abd: +BS, soft, NT/ND Ext: warm, no clubbing/cyanosis or edema Neuro: nonfocal, patient AA&O x 4, speech intact, no facial droop, moving all extremities on command. Results & Data Vital Signs (Past 12 Hours) Vital Signs Temp Pulse Resp BP Pulse Ox O2 Del Method 07/01/23 00:30 37 C 72 16 86/50 L 100 Room Air 06/30/23 20:15 36.8 C 76 16 106/54 L 100 Room Air Resident Activity Tracking Resident Involvement: Resident Care Provided Care Provided: OB Delivery
[2023-07-01] MEDS ORDERED: diphenhydrAMINE Capsule 25 MG CAP PO PRN (15:52)
[2023-07-01] MEDS: METOCLOPRAMIDE HCL 10 MG TABLET PO SCH (18:13)
[2023-07-01] MEDS: ONDANSETRON INJ 2 MG/ML 2 ML VIAL IV PRN (20:50)
[2023-07-01] MEDS: FAMOTIDINE 20 MG TAB PO SCH (20:50)
--- NOTE | 2023-07-02 06:30 | Obstetrical Progress Note ---
Date of Service July 02, 2023 Assessment & Plan (1) Hyperemesis gravidarum: Plan Continue regular diet. No emesis Nausea returned after switching to PO meds Will continue to monitor Regimen remains zofran, reglan, benadryl and pepcid. Admission and Anticipated Discharge Date Admission Date: June 29, 2023 Supervising Physician Co-Signing Physician Notes Patient seen with resident and agree with the above findings and plan. Currently on scheduled p.o. Reglan and p.o. Benadryl. Reports some nausea returning this morning and had some nausea overnight. Has received 2 doses of IV Zofran since being switched to p.o. antiemetics. Has had no known vomiting and is tolerating regular diet. Discussed transitioning to sublingual Zofran as an as needed medication on top of scheduled Reglan and Benadryl. Discussed that if she tolerates full oral antiemetics with regular diet that discharge may be possible this afternoon. Recommend that she stay on scheduled Reglan and Benadryl as currently prescribed at home and use sublingual Zofran and Phenergan rectal suppositories as needed. Recommend continuing with Pepcid 20 mg p.o. twice daily at home. Plan discussed with patient and was agreeable Subjective 27 y/o female with IUP at 8w4d Nausea came back last night after discontinue IV medications No emesis, Tolerated well regular diet yesterday She denied any vaginal bleeding or pelvic pain Physical Exam Physical Exam: General: patient resting comfortably, NAD, non-toxic in appearance, AA&O x 4, answers questions appropriately. Skin: warm, dry, intact HEENT: NC/AT, anicteric sclera, conjunctiva without injection, moist mucus membranes Heart: +S1/S2, regular, no m/r/g Lungs: equal air entry bilaterally, no rales/rhonchi/wheezes Abd: +BS, soft, NT/ND Ext: warm, no clubbing/cyanosis or edema Neuro: nonfocal, patient AA&O x 4, speech intact, no facial droop, moving all extremities on command. Results & Data Vital Signs (Past 12 Hours) Vital Signs Temp Pulse Resp BP Pulse Ox O2 Del Method 07/02/23 04:30 36.8 C 84 14 84/44 L 94 Room Air 07/02/23 00:08 37.0 C 86 14 90/43 L 97 Room Air Resident Activity Tracking Resident Involvement: Resident Care Provided Care Provided: OB Delivery
[2023-07-02] MEDS: diphenhydrAMINE Capsule 25 MG CAP PO SCH (08:39)
[2023-07-02] MEDS: METOCLOPRAMIDE HCL INJ 5 MG/ML 2 ML VIAL IV STA (12:48)
[2023-07-02] MEDS: diphenhydrAMINE 50 MG/ML VIAL IV STA (12:48)
--- NOTE | 2023-07-02 13:29 | Communication Note ---
Date of Service: July 02, 2023 Went to see pt as she requested and also checking on her given plan of care. She has kept some po down but does not have much appetite. On my arrival she was on the phone and crying. Says her partner is on his way in. She was switched to po regimen of benadryl and reglan and since doing so does not feel well. She is scared and frustrated that her persistent retching will return. She feels nausea on this po regimen and in essence asks about PICC line with some expectation that she could go home on intermittent iv meds. She feels that she is able to ke ep fluids down, not much food and has 2 boys at home and cannot tolerate sitting near toilet and just retching. She saw me for her nob last week and i started an order for mtu visits for banana bag, benadryl and reglan iv and zofran prn. She had 2 prior ER visits before nob. Then this weekend presented friday with this admission. She does note was not waking up in middle of night to take her meds. She is made aware that to the best of my knowledge ivf/vitamin would only be option to infuse as home iv treatment. I have never been aware of intermittent push medication for home trt, srini since no insurance would approve 4x/d nursing care and likely will not teach such to family member. Unfortunately with her normal labs, i doubt TPN would be her next step, at least not yet. She had also felt that her nurse today was arguing with her about this and so that is why she asked to see me but admits i am telling her the same things. She does seem to understand that she may persist with nausea but i think just fears going home and having to return. She at first says "fine" then I will just have my pick me up and will go home. She would utilize mtu at least at this point mw. She was somewhat hostile but kind even though i was expressing empathy. I asked her if it was ok to call case mgmt to see if they would have insight as to home nursing care and she agreed. I spoke with Elsie Sparks and she did inform me that no nursing care in home 4x/d for iv med pushes would be accommodated. Difficult for approval for once a day nursing. Also made her aware of no recent lab abnl either. I went back to share this with patient and her partner had arrived. Reviewed all again with them. Expressed empathy and provided support. She wants to go home and plans to set alarm so that she doses meds that she feels work for her, reglan and benadryl on a 6hr schedule. Also will go to mtu for planned iv doses and banana bag, at least every mwf. We discussed possible referral to [facility] for more advice, ideas to help her. She may want to do this. For now will plan to come to office friday for check in. Gave her iv doses of her preferred meds prior to dc home.
== END 2023-07-02 13:45 | disposition home or self-care (01) | DRG 833 ==
LOC: 40.0 10:59

== ENCOUNTER 2024-02-09 07:21 | Inpatient (IN) ==
--- OUTSIDE RECORDS SUMMARY | 2024-02-09 07:25 | External Medical Summary | Summary of Care ---
Author Name Unknown Organization [facility] Address [address] [facility] [place] [address] Phone [phone] Care Team Providers Care Sack Lifter Name Role Phone Tyler Mondragon MD Primary Care Provider + Reason for Visit * Reason Comments [facility] Return Encounter Details Date Type Department Care Team (Late st Contact Info) Description 02/04/2024 9:00 AM EST Office Visit Gynecology/Obstetri charlotte Loyola [address] [place] [address] Margo Zamora PA-C [address] [place] [address] Nurse Nir [facility] Return Estephania [address] [place] [address] Normal in third trimester*; Hyperemesis gravidarum Allergies Active Allergy Reactions Criticality Noted Date Comments Karol Oil Itching High 06/18/2023 documented as of this encounter (statuses as of 02/04/2024) Medications 6.75-0.2 MG Oral Tablet 1 Tablet. 06/17/2023 Active Bonjesta 20-20 MG Oral Tablet Extended Release (Doxylamine-Pyr idoxine ER)Indications: Hyperemesis gravidarum Take 20 mg by mouth in the morning and 20 mg in the evening. 60 Tablet 3 12/05/2023 Active Iron 325 (65 Fe) MG Oral Tablet Take by mouth. Taking every other day Active Bonjesta 20-20 MG Oral Tablet Extended Release (Doxylamine-Pyr idoxine ER) Take 20 mg by mouth in the morning and 20 mg in the evening. 90 Tablet 1 01/22/2024 Active documented as of this encounter (statuses as of 02/04/2024) Active Problems Problem Noted Date Diagnosed Date Vaginal discharge 01/01/2024 Depression 07/11/2023 Hyperemesis gravidarum 07/11/2023 Mild dysplasia of cervix (ELLIS I) 07/11/2023 Normal 07/11/2023 Attention deficit hyperactivity disorder (ADHD) 04/13/2018 Estimated Date of Delivery Comme nts Yes 02/08/2024 Based on Ultraso und documented as of this encounter (statuses as of 02/04/2024) Immunizations Name Administration Dates Next Due TDAP, Age 7 and older, IM (Adacel) 11/18/2023 documented as of this encounter Social History Tobacco Use Types Packs/Day Years Used Date Smoking Tobacco: Former Cigarettes Smokeless Tobacco: Never Alcohol Use Standard Drinks/Week Comments Not Currently 0 (1 standard drink = 0.6 oz pur e alcohol) socially Hunger Vital Sign Answer Date Recorded Within the past 12 months, y ou worried that your food would run out before you got the money to buy more. Never true 06/10/19 Within the past 12 months, t he food you bought just didn't last and you didn't have money to get more. Never true 06/10/2023 [place] Depression Scale Answer Date Recorded [place] Depression Scale Total 7 12/19/2023 The thought of harming myself has occurred to me . Never 12/19/2023 Childcare Answer Date Recorded Do you feel overwhelmed with taking care of a child, family member or friend? No 06/10/2023 Does your family need help f inding childcare? (Household - for ages 0-17 years) Not on file 06/10/2023 Clothing Answer Date Recorded Have you been unable to get clothing when it was really needed? No 06/10/2023 Is your family able to get c lothes or diapers when needed? (Household - for ages 0-17 years) Not on file 06/10/2023 Personal Safety Answer Date Recorded Do you feel unsafe or have concerns for your saf ety? No 06/10/2023 Do you have concerns for you r family's safety? (Household - for ages 0-17 years) Not on file 06/10/2023 Utilities Answer Date Recorded Do you have trouble paying y our heating, water, or electric bill? No 06/10/2023 Is your family able to pay t he heat, water, or electric bill? (Household - for ages 0-17 years) Not on file 06/10/2023 Does your family have access to good internet? (Household - for ages 0-17 years) Not on file 06/10/2023 Employment Status Answer Date Recorded Are you unemployed or without regular income? No 06/10/2023 Does the household have a [facility] source [facility] income? (Household - for ages 0-17 years) Not on file 06/10/2023 Social Connections Answer Date Recorded How often do you feel lonely or isolated from th ose around you? Rarely 06/10/2023 Financial Resource Strain Answer Date R ecorded Do you have any trouble payi ng for your medications, or do you think you might in the future? No 06/10/2023 Does your family have troubl e paying for medicine? (Household - for ages 0-17 years) Not on file 06/10/2023 Transportation Needs Answer Date Record ed READ ONLY Do you have troubl e getting a ride to medical visits or work? Never True 06/10/2023 Does your family have a hard time getting a ride to doctors visits? (Household - for ages 0-17 years) Not on file 06/10/2023 Has lack of transportation k ept you from medical appointments, meetings, work, or from getting things needed for daily living? Check all that apply. (Adult - for ages 18 years and over) Not on file 06/10/2023 Do you (or your family) have trouble finding or paying for a ride (transportation)? (Household - for ages 0-17 years) Not on file 06/10/2023 Housing Stability Answer Date Recorded Do you currently live in a s helter or have no steady place to sleep at night? No 06/10/2023 READ ONLY Do you think you a re at risk of becoming homeless? No 06/10/2023 Does your family worry about paying for your home or becoming homeless? (Household - for ages 0-17 years) Not on file 0 06/10/2023 Are you homeless or worried that you might be in the future? (Adult - for ages 18 years and over) Not on file Are you (or your family) kelle eless or worried that you might be in the future? (Household - for ages 0-17 years) Not on file Food Insecurity Answer Date Recorded Do you need food for this week? No 06/10/2023 Are you able to get enough f ood for your family? (Household - for ages 0-17 years) Not on file 06/10/2023 Does your family need food t his week? (Household - for ages 0-17 years) Not on file 06/10/2023 Do you always have enough fo od for your family? (Household - for ages 0-17 years) Not on file 06/10/2023 Estimated Date of Delivery Comme nts Yes 02/08/2024 Based on Ultraso und Sex and Gender Information Value Date Recorded Sex Assigned at Female 06/10/2023 1:26 PM EDT Legal Sex Female 6:15 AM EST Gender Identity Female 06/10/2023 1:26 PM EDT Sexual Orientation Choose not to disclose 2023 1:30 PM EDT documented as of this encounter Last Filed Vital Signs Vital Sign Reading Time Taken Comments Blood Pressure 124/86 02/04/2024 9:26 AM EST Pulse - - Temperature - - Respiratory Rate - - Oxygen Saturation - - Inhaled Oxygen Concentration - - Weight 95.7 kg (211 lb) 02/04/2024 9:26 AM EST Height 165.1 cm (5' 5") 02/04/2024 9:26 AM EST Body Mass Index 35.11 02/04/2024 9:26 AM EST documented in this encounter Progress Notes * Margo Zamora PA-C - 02/04/2024 9:41 AM EST 39w3d Pelvic pressure/pain increasing. Contractions, but she has been feeling these throughout .Would like cervical check. IOL scheduled for postdates 02/09/2024, reviewed with [facility] and Kacy as had date in [employer] system as 02/05. Pt states IOL paper states 02/08, confirmed with [facility] as 02/08. Denies LOF, VB. Baby is active. Chucker Documentation Provider requested academic support specialist. Name of academic support specialist: Windy Sandra LPN RTC for appointments Margo Zamora PA-C documented in this encounter Nursing Notes * Windy Jha LPN - 02/04/2024 9:29 AM EST [id number] Pelvic pain and pressure. documented in this encounter Plan of Treatment Health Maintenance Due Date Last Done Comments Depression Monitoring 2006 Hepatitis B Vaccine (1 of 3 - 19+ 3-dose series) 2013 COVID-19 Vaccine (2023- season) 2023 03/28/2021, 03/28/2021, 03/07/2021, Additional history exists Influenza Vaccine (FLU shot) (#1) 2023 Pap Smear 01/08/2025 01/08/2022 DTap/Tdap Vaccines (4 - Td or Tdap) 11/17/2033 11/18/2023, 01/12/2021, 01/30/2020 HPV (Gardasil) Vaccine Completed 0, 12/28/2007, 10/20/2007 MENINGOCOCCAL (MENACTRA/MENVEO) Aged Out No longer eligible based on patient's age to complete this topic Pneumococcal Vaccine: Pediatrics (0 to 5 Years) and At-Risk Patients (6 to 64 Years) Aged Out No longer eligible based on patient's age to complete this topic documented as of this encounter Medical Devices Not on filedocumented as of this encounter Visit Diagnoses Diagnosis Normal in third trimester- Primary Hyperemesis gravidarum Mild hyperemesis gravidarum, unspecified as to episode of care documented in this encounter Care Teams Sack Lifter Relationship Specialty Start Date End Date Tyler Mondragon MD PCP - General Pediatrics 05/01/16 documented as of this encounter
--- OUTSIDE RECORDS SUMMARY | 2024-02-09 07:25 | External Medical Summary | Summary of Care ---
Author Name Unknown Organization [facility] Address [address] [facility] [place] [address] Phone [phone] Care Team Providers Care Private Wealth Advisor Name Role Phone Tyler Mondragon MD Primary Care Provider + Reason for Visit * Reason Comments Return Visit Encounter Details Date Type Department Care Team (Late st Contact Info) Description 01/26/2024 7:30 AM EST Office Visit Gynecology/Obstetri charlotte Loyola [address] [facility] [place] [address] Margo Zamora PA-C [address] [facility] [place] [address] Nurse Arun Loyola Begin[facility] Return Estephania [address] [facility] [place] [address] Normal in third trimester*; Hyperemesis gravidarum; Vaginal odor Allergies Active Allergy Reactions Criticality Noted Date Comments Karol Oil Itching High 06/18/2023 documented as of this encounter (statuses as of 01/26/2024) Medications 6.75-0.2 MG Oral Tablet 1 Tablet. [...] as of this encounter (statuses as of 01/26/2024) Active Problems Problem Noted Date Diagnosed Date Vaginal discharge 01/01/2024 Depression 07/11/2023 Hyperemesis gravidarum 07/11/2023 Mild dysplasia of cervix (ELLIS I) 07/11/2023 Normal 07/11/2023 Attention deficit hyperactivity disorder (ADHD) 04/13/2018 Estimated Date of Delivery Comme nts Yes 02/08/2024 Based on Ultraso und documented as of this encounter (statuses as of 01/26/2024) Immunizations Name Administration Dates Next Due TDAP, [...] money to get more. Never true 06/10/2023 [place] Depression Scale Answer Date Recorded [place] Depression Scale Total 7 12/19/2023 The thought [...] No 06/10/2023 Does the household have a re lar source of income? (Household - for ages [...] Sign Reading Time Taken Comments Blood Pressure 114/82 01/26/2024 7:43 AM EST Pulse - - Temperature - - Respiratory Rate - - Oxygen Saturation - - Inhaled Oxygen Concentration - - Weight 95.3 kg (210 lb) 01/26/2024 7:43 AM EST Height - - Body Mass Index 34.95 01/22/2024 12:55 PM EST documented in this encounter Progress Notes * Margo Zamora PA-C - 01/26/2024 8:01 AM EST 38w1d BV a few weeks ago, s/p treatment. Has started to notice vaginal odor concerned for reoccurrence and wants testing. Denies vaginal discharge, irritation. Denies LOF, VB. Irregular contractions. Baby is active. Would like cervical check. SSE: normal appearing vagina, physiologic appearing discharge, visualization of cervix limited. BME: cl/firm/high Discussed IOL, pt prefers postdates. If able would like to do prior to Thanksgiving. IOL scheduled 02/09/2024. Labor precautions RTC in 1 week Margo Zamora PA-C documented in this encounter Nursing Notes * Christianne Beltran RN - 01/26/2024 7:44 AM EST Patient here for MAJOR 38w1d + FM Denies bleeding/leaking No regular contractions Patient seen by [facility] Guill[facility] Trimmer. Patient denies any questions or concerns. Christianne Beltran RN documented in this encounter Plan of Treatment Upcoming Encounters Date Type Department Care Team (Late st Contact Info) Description 02/04/2024 9:00 AM EST Office Visit Gynecology/Obstetrics [facility] [address] [place] [address] Margo Zamora PA-C [address] [place] [address] Nurse Nir [facility] Return [facility] [address] [place] [address] Pending Results Name Type Priority Associated Diagnoses Date /Time VAGINOSIS PANEL, PCR Lab Routine Vaginal odor 01/26/2024 8:32 AM EST Scheduled Orders Name Type Priority Associated Diagnoses Orde r Schedule VAGINOSIS PANEL, PCR Lab Routine Vaginal odor Expected: 01/26/2024, Expires: 01/25/2025 Health Maintenance Due Date Last Done Comments Depression Monitoring 2006 Hepatitis B Vaccine (1 of 3 - 19+ 3-dose series) 2013 COVID-19 Vaccine ( season) 2023 03/28/2021, 03/28/2021, 03/07/2021, Additional history [...] gravidarum, unspecified as to episode of care Vaginal odor Unspecified symptom associated with female genital organs documented in this encounter Care Teams Private Wealth Advisor Relationship Specialty Start Date End Date Tyler Mondragon MD PCP - General Pediatrics 05/01/16 documented as of this encounter
--- OUTSIDE RECORDS SUMMARY | 2024-02-09 07:25 | External Medical Summary | Summary of Care ---
Author Name Unknown Organization [facility] Address [address] [facility] [place] [address] Phone [phone] Care Team Providers Care Fireworks Inspector Name Role Phone Tyler Mondragon MD Primary Care Provider + Reason for Visit * Reason Comments Return Visit Encounter Details Date Type Department Care Team (Late st Contact Info) Description 01/26/2024 7:30 AM EST Office Visit Gynecology/Obstetri charlotte Loyola [address] [facility] [place] [address] Margo Zamora PA-C [address] [place] [address] Nurse Arun Loyola Beginnings Return Estephania [address] [place] [place] [address] Normal in third trimester*; Hyperemesis gravidarum; Vaginal [...] money to get more. Never true 06/10/2023 [place] Depression Scale Answer Date Recorded [place] Depression Scale Total 7 12/19/2023 The thought [...] + FM Denies bleeding/leaking No regular contractions Christianne Beltran RN documented in this encounter Plan of Treatment Upcoming Encounters Date Type Department Care Team (Late st Contact Info) Description 01/28/2024 11:30 AM EST Office Visit Gynecology/Obstetrics Kiki Loyola [address] [place] [address] Margo Zamora PA-C [address] [place] [address] Nurse Nir [facility] Return Estephania [address] [place] [address] 02/04/2024 9:00 AM EST Office Visit Gynecology/Obstetrics [facility] Loyola [address] [place] [address] Margo Zamora PA-C [address] [place] [address] Nurse Arun Loyola Beginnings Return Estephania [address] [place] [address] Pending Results Name Type Priority Associated Diagnoses [...] - 19+ 3-dose series) 2013 COVID-19 Vaccine (3 - 2023- season) 2023 03/28/2021, 03/28/2021, 03/07/2021, Additional history [...] organs documented in this encounter Care Teams Fireworks Inspector Relationship Specialty Start Date End Date Tyler Mondragon MD PCP - General Pediatrics 05/01/16 documented as of this encounter
--- OUTSIDE RECORDS SUMMARY | 2024-02-09 07:26 | External Medical Summary | Summary of Care ---
Author Name Unknown Organization [facility] Address [address] [facility] [place] [address] Phone [phone] Care Team Providers Care Retail Planner Name Role Phone Tyler Mondragon MD Primary Care Provider + Reason for Visit * Reason Comments [facility] Return Encounter Details Date Type Department Care Team (Late st Contact Info) Description 01/22/2024 12:45 PM EST Office Visit Gynecology/Obstetri charlotte Loyola [address] [facility] [place] [address] Moy Nair MD [address] [place] [address] Nurse Nir [facility] Return Estephania [address] [place] [facility] [place] [address] Hyperemesis gravidarum*; Normal in third trimester Allergies Active Allergy Reactions Criticality Noted Date Comments Karol Oil Itching High 06/18/2023 documented as of this encounter (statuses as of 01/22/2024) Medications Medication Sig Dispensed Refills Start Date End Date Status 6.75-0.2 MG Oral Tablet 1 Tablet. 06/17/2023 Active Bonjesta 20-20 MG Oral Tablet Extended Release (Doxylamine-Pyridoxin e ER)Indications:Hypere mesis gravidarum Take 20 mg by mouth in the morning and 20 mg in the evening. 60 Tablet 3 12/05/2023 Active Iron 325 (65 Fe) MG Oral Tablet Take by mouth. Taking every other day Active Bonjesta 20-20 MG Oral Tablet Extended Release (Doxylamine-Pyridoxin e ER) Take 20 mg by mouth in the morning and 20 mg in the evening. 90 Tablet 1 01/22/2024 Active documented as of this encounter (statuses as of 01/22/2024) Active Problems Problem Noted Date Diagnosed Date Vaginal discharge 01/01/2024 Depression 07/11/2023 Hyperemesis gravidarum 07/11/2023 Mild dysplasia of cervix (ELLIS I) 07/11/2023 Normal 07/11/2023 Attention deficit hyperactivity disorder (ADHD) 04/13/2018 Estimated Date of Delivery Comme nts Yes 02/08/2024 Based on Ultraso und documented as of this encounter (statuses as of 01/22/2024) Immunizations Name Administration Dates Next Due TDAP, [...] money to get more. Never true 06/10/2023 [place] Depression Scale Answer Date Recorded [place] Depression Scale Total 7 12/19/2023 The thought [...] No 06/10/2023 Does the household have a [facility] source of income? (Household - for [...] Assigned at Female 06/10/2023 1:26 PM EDT Gender Identity Female 06/10/2023 1:26 PM EDT Sexual Orientation Choose not to disclose 2023 1:30 PM EDT Job Start Date Occupation Industry Not on file Not on file Not on file documented as of this encounter Last Filed Vital Signs Vital Sign Reading Time Taken Comments Blood Pressure 114/80 01/22/2024 12:55 PM EST Pulse - - Temperature - - Respiratory Rate - - Oxygen Saturation - - Inhaled Oxygen Concentration - - Weight 95.7 kg (211 lb) 01/22/2024 12:55 PM EST Height 165.1 cm (5' 5") 01/22/2024 12:55 PM EST Body Mass Index 35.11 01/22/2024 12:55 PM EST documented in this encounter Progress Notes * Moy Nair MD - 01/22/2024 1:35 PM EST Pt doing well No complaints RTc 1 week documented in this encounter Nursing Notes * Windy Jha LPN - 01/22/2024 12:59 PM EST 37w4d Denies concerns. documented in this encounter Plan of Treatment Upcoming Encounters Date Type Department Care Team (Late st Contact Info) Description 01/28/2024 11:30 AM EST Office Visit Gynecology/Obstetrics Kiki Loyola [address] [place] [address] Margo Zamora PA-C [address] [place] [address] Nurse Nir [facility] Return Estephania [address] [place] [address] 02/04/2024 9:00 AM EST Office Visit Gynecology/Obstetrics Kiki Loyola [address] [place] [address] Margo Zamora PA-C [address] [place] [address] Nurse Arun Loyola Beginnings Return Estephania [address] [place] [address] Health Maintenance Due Date Last Done Comments [...] as of this encounter Visit Diagnoses Diagnosis Hyperemesis gravidarum- Primary Mild hyperemesis gravidarum, unspecified as to episode of care Normal in third trimester documented in this encounter Care Teams Retail Planner Relationship Specialty Start Date End Date Tyler Mondragon MD PCP - General Pediatrics 05/01/16 documented as of this encounter
--- OUTSIDE RECORDS SUMMARY | 2024-02-09 07:26 | External Medical Summary | Summary of Care ---
Author Name Unknown Organization [facility] Address [address] [place] [facility] [place] [address] Phone [phone] Care Team Providers Care Claim Agent Name Role Phone Tyler Mondragon MD Primary Care Provider + Encounter Details Date Type Department Care Team (Late st Contact Info) Description 01/11/2024 Result Scan Unspecified Department <No scans attached> Allergies Active Allergy Reactions Criticality Noted Date Comments Karol Oil Itching High 06/18/2023 documented as of this encounter (statuses as of 01/19/2024) Medications Medication Sig Dispensed Refills Start Date [...] by mouth. Taking every other day Active documented as of this encounter (statuses as of 01/19/2024) Active Problems Problem Noted Date Diagnosed Date Vaginal discharge 01/01/2024 Depression 07/11/2023 Hyperemesis gravidarum 07/11/2023 Mild dysplasia of cervix (ELLIS I) 07/11/2023 Normal 07/11/2023 Attention deficit hyperactivity disorder (ADHD) 04/13/2018 Estimated Date of Delivery Comme nts Yes 02/08/2024 Based on Ultraso und documented as of this encounter (statuses as of 01/19/2024) Immunizations Name Administration Dates Next Due TDAP, [...] money to buy more. Never true 06/10/19 24 Within the past 12 months, t he food you bought just didn't last and you didn't have money to get more. Never true 06/10/2023 [place] Depression Scale Answer Date Recorded [place] Depression Scale Total 7 12/19/2023 The thought [...] 06/10/2023 Does the household have a re gular source of income? (Household - for ages [...] on file documented as of this encounter Plan of Treatment Upcoming Encounters Date Type Department Care Team (Late st Contact Info) Description 01/22/2024 12:45 PM EST Office Visit Gynecology/Obstetrics Kiki Loyola [address] [place] [address] Moy Nair MD [address] [place] [address] Nurse Nir [facility] Return Estephania [address] [place] [address] Health Maintenance Due Date Last Done Comments Depression Monitoring 2006 Hepatitis B Vaccine (1 of 3 - 19+ 3-dose series) 2013 COVID-19 Vaccine ( - season) 2023 03/28/2021, 03/28/2021, 03/07/2021, Additional history [...] Not on filedocumented as of this encounter Procedures Procedure Name Priority Date/Time Associated Diagnosis Comments OUTSIDE LAB RESULTS 01/11/2024 documented in this encounter Results * OUTSIDE LAB RESULTS (01/11/2024) 01/11/2024 No Physician Data Unknown LABORATORY documented in this encounter Care Teams Claim Agent Relationship Specialty Start Date End Date Tyler Mondragon MD PCP - General Pediatrics 05/01/16 documented as of this encounter
--- OUTSIDE RECORDS SUMMARY | 2024-02-09 07:26 | External Medical Summary | Summary of Care ---
Author Name Unknown Organization [facility] Address [address] [facility] [place] [address] Phone [phone] Care Team Providers Care Meter Inspector Name Role Phone Tyler Mondragon MD Primary Care Provider + Reason for Visit * Reason Onset Date Comments Test Results 01/19/2024 Encounter Details Date Type Department Care Team (Late st Contact Info) Description 01/19/2024 Telephone Gynecology/Obstetrics [facility] [address] [place] [address] Opal Lo MD [address] [place] [address] Test Results Allergies Active Allergy Reactions Criticality Noted Date [...] money to get more. Never true 06/10/2023 [place] Depression Scale Answer Date Recorded [place] Depression Scale Total 7 12/19/2023 The thought [...] on file documented as of this encounter Miscellaneous Notes * Telephone Encounter - Flor Stark RN - 01/19/2024 8:36 AM EST Spoke with pt and she is aware. * Telephone Encounter - Opal Lo MD - 01/19/2024 8:32 AM EST Please let her know her blood work is negative/ normal. Bile acid levels normal. Thank you documented in this encounter Plan of Treatment Upcoming Encounters Date Type Department Care Team (Late st Contact Info) Description 01/22/2024 12:45 PM EST Office Visit Gynecology/Obstetrics Kiki Loyola [address] [place] [address] Moy Nair MD [address] [place] [address] Nurse Nir [facility] Return Estephania [address] [place] [address] Health Maintenance Due Date Last Done Comments [...] Not on filedocumented as of this encounter Care Teams Meter Inspector Relationship Specialty Start Date End Date Tyler Mondragon MD PCP - General Pediatrics 05/01/16 documented as of this encounter
--- OUTSIDE RECORDS SUMMARY | 2024-02-09 07:26 | External Medical Summary | Summary of Care ---
Author Name Unknown Organization [facility] Address [address] [facility] [place] [address] Phone [phone] Care Team Providers Care Erecting Crane Operator Name Role Phone Tyler Mondragon MD Primary Care Provider + Reason for Visit * Reason Comments Return Visit Encounter Details Date Type Department Care Team (Late st Contact Info) Description 01/15/2024 9:15 AM EDT Office Visit Gynecology/Obstetric s Kiki Loyola [address] [place] [address] BackAyanna mederos CRNP [address] [place] [address] Normal in third trimester*; Hyperemesis gravidarum Allergies Active Allergy Reactions Criticality Noted Date Comments Karol Oil Itching High 06/18/2023 documented as of this encounter (statuses as of 01/15/2024) Medications Medication Sig Dispensed Refills Start Date End Date Status 6.75-0.2 MG Oral Tablet 1 Tablet. 06/17/2023 Active Bonjesta 20-20 MG Oral Tablet Extended Release (Doxylamine-Pyridoxi ne ER)Indications:Hyper emesis gravidarum Take 20 mg by mouth in the morning and 20 mg in the evening. 60 Tablet 3 12/05/2023 Active Iron 325 (65 Fe) MG Oral Tablet Take by mouth. Taking every other day Active Fluconazole 150 MG Oral Tablet (Diflucan)Indication s:Candidal vulvovaginitis Take 1 Tablet by mouth once for 1 dose. 1 Tablet 01/02/2024 01/15/2024 Discontinue d(Medicatio n List Clean Up) metroNIDAZOLE 500 MG Oral Tablet (Flagyl)Indications: BV (bacterial vaginosis) Take 1 Tablet by mouth in the morning and 1 Tablet before bedtime. X 7 days until gone.. 14 Tablet 01/02/2024 01/15/2024 Discontinue d(Medicatio n List Clean Up) documented as of this encounter (statuses as of 01/15/2024) Active Problems Problem Noted Date Diagnosed Date Vaginal discharge 01/01/2024 Depression 07/11/2023 Hyperemesis gravidarum 07/11/2023 Mild dysplasia of cervix (ELLIS I) 07/11/2023 Normal 07/11/2023 Attention deficit hyperactivity disorder (ADHD) 04/13/2018 Estimated Date of Delivery Comme nts Yes 02/08/2024 Based on Ultraso und documented as of this encounter (statuses as of 01/15/2024) Immunizations Name Administration Dates Next Due TDAP, [...] money to get more. Never true 06/10/2023 [place] Depression Scale Answer Date Recorded [place] Depression Scale Total 7 12/19/2023 The thought [...] Sign Reading Time Taken Comments Blood Pressure 118/78 01/15/2024 9:07 AM EDT Pulse - - Temperature - - Respiratory Rate - - Oxygen Saturation - - Inhaled Oxygen Concentration - - Weight 95.7 kg (211 lb) 01/15/2024 9:07 AM EDT Height - - Body Mass Index 35.11 12/31/2023 8:59 PM EDT documented in this encounter Patient Instructions * Patient Instructions* yAanna Dawn CRNP - 01/15/2024 9:12 AM EDT Round Ligament Pain: Causes and Treatment Round ligament pain is most common during the 2nd and 3rd trimesters. Women may have a sharp pain in their abdomen or hip area that is either on one side or both. Some women even report pain that extends into the groin area. Round ligament pain is considered a normal part of as your body goes through many different changes. What causes round ligament pain? The round ligament supports the uterus and stretches during . It connects the front portion of the uterus to the groin. These ligaments contract and relax like muscles, but much more slowly. Any movement (including going from a sitting to standing position quickly, laughing, or coughing) that stretches these ligaments by making them contract quickly, can cause a woman to experience pain.Round ligament pain should only last for a few seconds. Stretching is the best way to loosen things up and prevent round ligament pain. Here are our top round ligament pain stretches to get you started: #1 CAT-COW Start on your hands and knees, shoulders above wrists and hips above knees. Breathe in and drop your stomach down, arching your back and looking upward. Then, breathe out and round your upper back toward the ceiling, allowing your head to drop and face your stomach. #2 HIP FLEXOR STRETCH In all fours position with your arm resting on a chair or birthing ball, bring the right leg forward while extending/straightening the left leg back until you feel a stretch in the front of the left thigh. Hold the position for 5-10 seconds. Repeat on the opposite side. #3 SIDE LYING SAVASANA Lie on your left side in a position, tuck your left arm beneath your head, and place a pillowbetween your legs to relieve pressure on your lower back. Flex your hips and remain in this position for several minutes. Inhale deeply as you stretch. #4 THE PELVIC CLOCK Sit on a birthing ball or chair with your feet flat on the floor. Bring your hands to your hips so you can feel the movement in your pelvis as you stretch. Now, imagine a clock resting on your pelvis--with your navel at 12 oclock and pubic bone at 6 oclock. Engage your abs and lengthen your spine. Inhale and tilt your pelvis toward a 3 oclock position. Continue on the inhale and move around the clock, creating a small arch in your lower back. Exhale and bring your pelvis to 9 oclock. Continue your exhale until you reach a neutral 12 oclock position. #5 BUTTERFLY STRETCH Sit upright on a firm surface. Place the soles of your feet together and pulse your legs up and down, like the wings of a butterfly. You should feel a stretch in your inner thighs. For an even deeperstretch, place your hands on your knees for resistance. Other Ways to Relieve Round Ligament Pain While round ligament pain stretches are the best way to reduce pain, there are a few other things you can try to alleviate the discomfort : A belly band to give your bump some extra support Hydration to improve circulation to your growing tissue Rest to allow your muscles to recover from any movement Massage to give that area some extra TLC Acetaminophen to get some medicated pain relief documented in this encounter Progress Notes * Ayanna Dawn CRNP - 01/15/2024 9:06 AM EDT 36w4d Has itching all over; had labs drawn at [facility]. LFTs normal, bile acids in process. Was advised to take Benadryl, doesn't like how it makes her feel. Declines rx for Atarax. Ankles are swollen. Symmetric on exam, no erythema/warmth. Encouraged elevation, push fluids, compression socks. Low suspicion for VTE. Notes BH ctx, round ligament pain. + movement, no leaking/bleeding. Encouraged use of belly band, stretching exercises provided. Has labor instructions. Growth scan today; vertex, JACKSON 17.4 cm. + cardiac activity. GBS today. Return in 1 week. Reviewed [facility] and labor signs. Oyster Unloader Documentation Provider requested program director group work. Name of program director group work: LISSETTE Huynh documented in this encounter Nursing Notes * Iram Mcmullen LPN - 01/15/2024 9:07 AM EDT 36w4d Denies vaginal bleeding/rom + movement Having a lot of itching. Full body. Had labs at [facility]- Bile acids not back yet. [place] patel Round ligament pain documented in this encounter Plan of Treatment Pending Results Name Type Priority Associated Diagnoses Date /Time GROUP B STREP CULTURE/PCR Lab Routine Normal in third trimester 01/15/2024 9:29 AM EDT Health Maintenance Due Date Last Done Comments [...] care documented in this encounter Care Teams Erecting Crane Operator Relationship Specialty Start Date End Date Tyler Mondragon MD PCP - General Pediatrics 05/01/16 documented as of this encounter
--- OUTSIDE RECORDS SUMMARY | 2024-02-09 07:26 | External Medical Summary | Summary of Care ---
Author Name Unknown Organization [facility] Address [address] [facility] [place] [address] Phone [phone] Care Team Providers Care Organizational Development Manager Name Role Phone Tyler Mondragon MD Primary Care Provider + Reason for Visit * Reason Comments Return Visit Encounter Details Date Type Department Care Team (Late st Contact Info) Description 01/15/2024 9:15 AM EDT Office Visit Gynecology/Obstetric s Kiki Loyola [address] [place] [address] BackAyanna mederos CRNP [address] [place] [address] Normal in third trimester*; Hyperemesis gravidarum Allergies [...] money to get more. Never true 06/10/2023 [place] Depression Scale Answer Date Recorded [place] Depression Scale Total 7 12/19/2023 The thought [...] this encounter Patient Instructions * Patient Instructions* Ayanna Dawn CRNP - 01/15/2024 9:12 AM EDT [...] itching all over; had labs drawn at [facility]. LFTs normal, bile acids in process. [...] 1 week. Reviewed [facility] and labor signs. Robot Operator Documentation Provider requested senior solutions consultant. Name of senior solutions consultant: LISSETTE Huynh documented in this encounter Nursing Notes * Iram Mcmullen LPN - 01/15/2024 9:07 AM EDT 36w4d Denies vaginal bleeding/rom + movement Having a lot of itching. Full body. Had labs at [facility]- Bile acids not back yet. [place] patel Round ligament pain documented in this [...] care documented in this encounter Care Teams Organizational Development Manager Relationship Specialty Start Date End Date Tyler Mondragon MD PCP - General Pediatrics 05/01/16 documented as of this encounter
--- OUTSIDE RECORDS SUMMARY | 2024-02-09 07:26 | External Medical Summary | Summary of Care ---
Author Name Unknown Organization [facility] Address [address] [facility] [place] [place] [address] Phone [phone] Care Team Providers Care Roof Designer Name Role Phone Tyler Mondragon MD Primary Care Provider + Encounter Details Date Type Department Care Team (Late st Contact Info) Description 01/10/2024 Telephone Gynecology/Obstetrics [facility] [address] [place] [address] Opal Lo MD [address] [place] [address] Allergies Active Allergy Reactions Criticality Noted Date [...] money to get more. Never true 06/10/2023 [place] Depression Scale Answer Date Recorded [place] Depression Scale Total 7 12/19/2023 The thought [...] Encounter - Flor Stark RN - 01/19/2024 8:37 AM EST See other encounter. * Telephone Encounter - Araceli Chatterjee LPN - 01/12/2024 10:38 AM EDT left message for patient to call office * Telephone Encounter - Opal Lo MD - 01/10/2024 9:21 AM EDT Patient called with intense itching of who,e body including pals, soles, unable to sleep Recommended Benadryl lotion, tb at night, Zyrtec tb during the day Discussed ICP, Blood work Desire to have bw today and wants to be seen early this week. I placed the orders Please help to arrange Thanks documented in this encounter Plan of Treatment Upcoming Encounters Date Type Department Care Team (Late st Contact Info) Description 01/22/2024 12:45 PM EST Office Visit Gynecology/Obstetrics Kiki Loyola [address] [place] [address] Moy Nair MD [address] [place] [address] Nurse Nir Healthy [facility] Return Estephania [address] [place] [address] Scheduled Orders Name Type Priority Associated Diagnoses Orde r Schedule COMPREHENSIVE METABOLIC PANEL Lab Routine Prurigo of in third trimester Expected: 01/10/2024, Expires: 03/12/2024 CBC WITH WBC DIFFERENTIAL Lab Routine Prurigo of in third trimester Expected: 01/10/2024, Expires: 03/12/2024 BILE ACIDS, FRACTIONATED AND TOTAL Lab Routine Prurigo of in third trimester Expected: 01/10/2024, Expires: 03/12/2024 Health Maintenance Due Date Last Done Comments Depression Monitoring 2006 Hepatitis B Vaccine (1 of 3 - 19+ 3-dose series) 2013 COVID-19 Vaccine ( - 2023- season) 2023 03/28/2021, 03/28/2021, 03/07/2021, [...] as of this encounter Visit Diagnoses Diagnosis Prurigo of in third trimester- Primary documented in this encounter Care Teams Roof Designer Relationship Specialty Start Date End Date Tyler Mondragon MD PCP - General Pediatrics 05/01/16 documented as of this encounter
--- OUTSIDE RECORDS SUMMARY | 2024-02-09 07:26 | External Medical Summary ---
Author Name Unknown Address Unknown Organization K01:[facility] [place] - [address] [facility] [address] Laboratory Report Ordering Provider Test Date Status ITZCHAPARRO 01/26/2024 08:32:09 Final Observation Date Value Abnormality Reference (Units ) Status Bacterial vaginosis [Interpretation] in Vaginal fluid Qualitative 01/26/2024 08:32:09 Negative Negative Final Negative for Bacterial Vagin osis. Correlate results with other clinical findings. Natalie sp DNA [Presence] in Vaginal fluid by Probe 01/26/2024 08:32:09 Negative Negative Final No Natalie species group RNA detected. Correlate results with other clinical findings. Natalie glabrata RNA [Presen ce] in Vaginal fluid by SHARON with probe detection 01/26/2024 08:32:09 Negative Negative Final No Natalie glabrata RNA dete cted. Correlate results with other clinical findings. Trichomonas vaginalis DNA [P resence] in Vaginal fluid by Probe 01/26/2024 08:32:09 Negative Negative Final No Trichomonas vaginalis RNA detected. Performing Location [facility] - [address] [facility] [address]
--- OUTSIDE RECORDS SUMMARY | 2024-02-09 07:26 | External Medical Summary | Summary of Care ---
Author Name Unknown Organization [facility] Address [address] [facility] [place] [address] Phone [phone] Care Team Providers Care Electronic Integrated Systems Mechanic Name Role Phone Tyler Mondragon MD Primary Care Provider + Reason for Visit * Reason Comments Return Visit Encounter Details Date Type Department Care Team (Late st Contact Info) Description 01/26/2024 7:30 AM EST Office Visit Gynecology/Obstetri charlotte Loyola [address] [facility] [place] [address] Margo Zamora PA-C [address] [facility] [place] [address] Nurse Arun Loyola Beginnings Return Estephania [address] [facility] [place] [address] Normal in third trimester*; Hyperemesis gravidarum; Vaginal [...] money to get more. Never true 06/10/2023 [place] Depression Scale Answer Date Recorded [place] Depression Scale Total 7 12/19/2023 The thought [...] Kiki Loyola [address] [place] [address] Margo Zamora PA-C [address] [place] [address] Nurse Nir [facility] Return Estephania [address] [place] [address] 02/04/2024 9:00 AM EST Office Visit Gynecology/Obstetrics Kiki Loyola [address] [place] [address] Margo Zamora PA-C [address] [place] [address] Nurse Arun Loyola Beginnings Return Estephania [address] [place] [address] Scheduled Orders Name Type Priority Associated Diagnoses [...] organs documented in this encounter Care Teams Electronic Integrated Systems Mechanic Relationship Specialty Start Date End Date Tyler Mondragon MD PCP - General Pediatrics 05/01/16 documented as of this encounter
--- OUTSIDE RECORDS SUMMARY | 2024-02-09 07:26 | External Medical Summary ---
Author Name Unknown Address Unknown Organization K01:[facility]ATORY [place] [address] [place] [address] Laboratory Report Ordering Provider Test Date Status HUSSAIN CHOWDHURY 01/15/2024 09:29:40 Final Observation Date Value Abnormality Reference (Units ) Status Streptococcus agalactiae DNA [Presence] in Specimen by SHARON with probe detection 01/15/2024 09:29:40 Negative Negative Final No Group B Streptococcus det ected by culture-enhanced PCR (amplified probe). GBS GBSCT - [facility] 01/15/2024 09:29:40 0.0 Final GBS SPCCT - [facility] 01/15/2024 09:29:40 32.5 Final Performing Location [facility] [place] [facility] [address] [place] [address]
[2024-02-09] MEDS ORDERED: CALCIUM CARBONATE 500 MG CHEWABLE TAB PO PRN (08:42)
[2024-02-09] MEDS ORDERED: LIDOCAINE 1% LOCAL 20 ML VIAL INFIL PRN (08:42)
[2024-02-09] MEDS ORDERED: OXYTOCIN 30 UNITS/NSS 30 UNITS/500 ML BAG IV PRN (08:42)
[2024-02-09] MEDS ORDERED: ACETAMINOPHEN 325 MG TAB PO PRN (08:42)
--- NOTE | 2024-02-09 08:49 | History & Physical Report ---
Date of Service February 09, 2024 Assessment & Plan (1) Post-term , 40-42 weeks of gestation: Plan: 28-year-old -0-0-1 at 40 weeks and 1 day gestation who was scheduled for induction of labor at term, Vital signs stable afebrile, GBS negative, heart rate reassuring, Cervix unfavorable, Plan to admit, monitor, labs, Cervidil for cervical ripening, discussed pain management during and what to expect during induction of labor, All questions were answered. (2) Hyperemesis gravidarum: Admission and Anticipated Discharge Date Admission Date: February 09, 2024 History of Present Illness Primary Care Provider: Saritha Morales MD, FACOG Patient is a 28-year-old -0-0-1 at 40 weeks and 1 day gestation who was scheduled for induction of labor at term. Patient has no complaints. She denies contractions, leakage of fluid, vaginal bleeding. She reports good movements. Her has been uncomplicated except, 1. Hyperemesis gravidarum, patient was on daily IV fluids until almost 20 weeks of , has been on Diclegis every day, 2. History of ADHD, depression, was on medical marijuana before but has stopped during this , has not been on any medications, feels well<, GBS negative Allergies Allergy/AdvReac Type Severity Reaction Status Date / Time anne Allergy Intermediate Itching Verified 07/25/23 14:00 Home Medications Medication Instructions Recorded Confirmed Type vit no.95-ferrous 1 tab PO DAILY 06/17/23 02/09/24 History fumarate 28 mg-folic acid 800 mcg tablet () diphenhydramine HCl 25 mg chewable 25 mg PO TID PRN nausea and 06/23/23 07/25/23 Rx tablet (Allergy Relief vomiting #1 tab (diphenhydramine)) metoclopramide HCl 10 mg tablet 10 mg PO Q6H PRN nausea and 06/26/23 07/25/23 Rx (Reglan) vomiting #30 tabs doxylamine 20 mg-pyridoxine 20 mg See Rx Instructions .Route .COMPLEX 02/09/24 02/09/24 History tablet,immediate and delayed release (Bonjesta) Patient History Medical History Varicella vaccination Depression COVID-19 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 1:30, 1.5 x 1cm Anxiety GI bleed Surgical History S/P breast augmentation H/O colposcopy with cervical biopsy 2018, mary 1 H/O left breast biopsy needle core bx, 2013, fibroadenoma S/P colonoscopy secondary to blood in stools H/O wisdom tooth extraction Family History Father Hypoglycemia Allergic rhinitis Aunt Breast cancer maternal Brother Asthma Other Anemia Dyslipidemia Denies family history of Ovarian cancer Colorectal cancer Social History Smoking Status: Former smoker Tobacco Type: Cigarettes Age Quit Using Tobacco: 22; Smoking End Date: six years ago; Second Hand Exposure: No; Do You Dip or Chew Tobacco: No; Hx Alcohol Use: No Hx Substance Use: No Preferred Language: Czech Communication Ability: Effective State Historical Society Director Required: No Beliefs That Will Affect Care: None marital status: marital status details: Chevy Sanchez (26) [phone] Current Living Situation: Spouse and Family Current Living Situation Comment: patient lives with and two sons. current occupational status: employed current occupation: [employer] Other Information That Helps Us Care for You: No Feels Safe at Home: Yes Safety Concerns: Feels Safe At This Time Assistive Devices: None OB History full-term on March 2021, 7 pound 11 pounds, no complications [employer] History no history of STDs, no history of chlamydia, gonorrhea, herpes Review of Systems as per Subjective / HPI Physical Exam Constitutional: WD/WN, vitals as above well developed, well nourished, well groomed and comfortable Gastrointestinal (Abdomen): normal bowel sounds, soft, nontender, no hepatosplenomegaly Genitourinary: normal external appearance OB Exam Abdomen: + vertex Manual OB Exam: + cervical dilation 1 cm, + cervical effacement 20% and + station high OB Exam Monitor Tracing: + external uterine monitor used and + category I Results & Data Vital Signs (Past 12 Hours) Vital Signs Temp Pulse Resp BP 02/09/24 07:40 36.8 C 100 H 18 130/74 02/09/24 07:34 100 H 130/74 02/09/24 07:26 18 02/09/24 07:26 36.8 C 18
[2024-02-09] MEDS: DINOPROSTONE 10 MG INSERT PV ONE (09:20)
[2024-02-09 09:26] LABS: Hematocrit (blood only) 33.7 % (37.0-47.0); Mean Corpuscular Hgb Conc 35.6 g/dL (32.0-36.0); Mean Corpuscular Volume 89.9 fL (80.0-100.0); Mean Platelet Volume 10.4 fL (9.4-12.4); Platelet Count 177 K/uL (130-400); RDW Coefficient of Variation 13.2 % (11.5-14.5); RDW Standard Deviation 43.2 fL (36.4-46.3); Red Blood Count 3.75 M/uL (4.20-5.40); White Blood Count 10.43 K/ul (4.8-10.8)
--- NOTE | 2024-02-09 09:26 | Obstetrical Progress Note ---
Date of Service February 09, 2024 Assessment & Plan Admission and Anticipated Discharge Date Admission Date: February 09, 2024 Subjective Cervidil is placed in posterior cervix Results & Data Vital Signs (Past 12 Hours) Vital Signs Temp Pulse Resp BP 02/09/24 09:23 88 02/09/24 09:23 136/86 02/09/24 09:22 89 02/09/24 09:22 138/96 02/09/24 07:40 36.8 C 100 H 18 130/74 02/09/24 07:34 100 H 130/74 02/09/24 07:26 18 02/09/24 07:26 36.8 C 18
[2024-02-09 09:39] LABS: Albumin Globulin Ratio 1.3 (0.9-2); Albumin Level 3.4 gm/dl (3.4-5.0); BUN Creatinine Ratio 16.7 (10-20); Bilirubin,Total 0.7 mg/dl (0.2-1.0); Calcium 8.9 mg/dl (8.6-10.3); Creatinine Clr Calc Pharmacy 172.4 ml/min; Globulin 2.7 gm/dl (2.5-4.0); Potassium 3.5 mmol/L (3.5-5.1); Total Protein 6.1 gm/dl (6.0-8.3)
--- NOTE | 2024-02-09 15:35 | Obstetrical Progress Note ---
Date of Service February 09, 2024 Assessment & Plan Admission and Anticipated Discharge Date Admission Date: February 09, 2024 Subjective Patient is reevaluated Started to feel crampy for the last 30 min or so, not very painful No LOF/VB +FM VE; cervix unchanged FHR categ I [place] ctxs q 2-4 min Continue to monitor Stadol for pain when she desires Results & Data Vital Signs (Past 12 Hours) Vital Signs Temp Pulse Resp BP Pulse Ox 02/09/24 15:25 18 02/09/24 15:25 36.7 C 18 02/09/24 12:22 92 H 02/09/24 12:22 129/88 02/09/24 11:00 36.8 C 02/09/24 10:13 99 02/09/24 10:13 95 H 02/09/24 09:23 88 02/09/24 09:23 136/86 02/09/24 09:22 89 02/09/24 09:22 138/96 02/09/24 07:40 36.8 C 100 H 18 130/74 02/09/24 07:34 100 H 130/74 02/09/24 07:26 18 02/09/24 07:26 36.8 C 18
[2024-02-09] MEDS: BUTORPHANOL TARTRATE 2 MG/ML VIAL IV PRN (17:02)
--- NOTE | 2024-02-09 21:38 | Obstetrical Progress Note ---
Date of Service February 09, 2024 Assessment & Plan Admission and Anticipated Discharge Date Admission Date: February 09, 2024 Subjective Patient received Stadol for pain and slept for an hour or so, woke up with mild irregular contractions, not very painful VSS Afebrile VE; tight 3 cm/ 40%/ -3, posterior, Cervidil is removed FHR categ I Discussed Farooq score, cervical ripening, PG, Oxytocin use, labor, induction all in details Decided to shower, ambulate and start PO Cytotec, All questions were answered. Results & Data Vital Signs (Past 12 Hours) Vital Signs Temp Pulse Resp BP Pulse Ox 02/09/24 19:01 87 02/09/24 19:01 114/60 02/09/24 19:00 36.8 C 16 02/09/24 15:25 18 02/09/24 15:25 36.7 C 18 02/09/24 12:22 92 H 02/09/24 12:22 129/88 02/09/24 11:00 36.8 C 02/09/24 10:13 99 02/09/24 10:13 95 H
[2024-02-09] MEDS: miSOPROStoL 50 MCG TAB PO SCH (22:30)
--- NOTE | 2024-02-10 06:39 | Obstetrical Progress Note ---
Date of Service February 10, 2024 Assessment & Plan Admission and Anticipated Discharge Date Admission Date: February 09, 2024 Subjective patient is reevaluated. She is due for third dose of p.o. Cytotec. She has not felt much contractions since the second dose of Cytotec. She received Stadol IV for pain and she has been sleeping. I rechecked her cervix she is 3 to 4 cm, 50%, -2 no change, heart rate category 1, toco shows mild irregular contractions. We discussed the options of either IV oxytocin per protocol and AROM versus continue with third dose of p.o. Cytotec. Patient prefers Cytotec since she can ambulate and may be able to eat a small breakfast. Continue to monitor closely, All questions were answered. Results & Data Vital Signs (Past 12 Hours) Vital Signs Temp Pulse Resp BP 02/10/24 03:33 36.7 C 82 18 109/65 02/09/24 23:09 36.6 C 18 02/09/24 23:03 90 02/09/24 23:03 117/65 02/09/24 19:01 87 02/09/24 19:01 114/60 02/09/24 19:00 36.8 C 16
[2024-02-10] MEDS ORDERED: NALBUPHINE HCL INJ 10 MG/ML AMP IV PRN (07:29)
[2024-02-10] MEDS ORDERED: NALOXONE HCL 0.4 MG/1 ML VIAL/CARP IV PRN (07:29)
[2024-02-10] MEDS ORDERED: diphenhydrAMINE 50 MG/ML VIAL IV PRN (07:29)
[2024-02-10] MEDS ORDERED: ePHEDrine sulfate 50 MG/ML AMP IV PRN (07:29)
[2024-02-10] MEDS ORDERED: ROPIVACAINE 0.5% PF 5 MG/ML 20 ML VIAL EPI PRN (07:29)
[2024-02-10] MEDS ORDERED: NALOXONE HCL 1 MG in SODIUM CHLORIDE 0.9% 1,000 ML IV PRN (07:29)
[2024-02-10] MEDS ORDERED: LIDOCAINE 2% MPF LOCAL 5 ML VIAL EPI PRN (07:29)
--- NOTE | 2024-02-10 07:29 | Anesthesiology Consultation ---
Date of Service February 10, 2024 Assessment & Plan (1) Encounter for pre-operative examination: Chart Review Chart Review: Patient NOT seen in Pre Admission Testing and Acceptable Risk for Labor Epidural Consults Requested none History Height/Weight Height: 5 ft 5 in Weight: 92.079 kg Allergies Allergy/AdvReac Type Severity Reaction Status Date / Time anne Allergy Intermediate Itching Verified 07/25/23 14:00 Medications Home Medications Medication Instructions Recorded Confirmed Last Taken vit no.95-ferrous 1 tab PO DAILY 06/17/23 02/09/24 02/08/24 21:00 fumarate 28 mg-folic acid 800 mcg tablet () diphenhydramine HCl 25 mg chewable 25 mg PO TID PRN nausea and 06/23/23 07/25/23 06/28/23 20:00 tablet (Allergy Relief vomiting #1 tab (diphenhydramine)) metoclopramide HCl 10 mg tablet 10 mg PO Q6H PRN nausea and 06/26/23 07/25/23 06/27/23 19:00 (Reglan) vomiting #30 tabs doxylamine 20 mg-pyridoxine 20 mg See Rx Instructions .Route .COMPLEX 02/09/24 02/09/24 02/09/24 06:00 tablet,immediate and delayed release ([place]) Active Medications Generic Name Dose Route Start Last Admin Trade Name Freq PRN Reason Stop Dose Admin Butorphanol Tartrate 1 mg 02/09/24 15:33 02/10/24 02:37 Butorphanol Tartrate 2 Mg/Ml Vial IV 03/10/24 15:32 1 mg Q2H PRN Administration Pain Misoprostol 50 mcg 02/09/24 22:30 02/10/24 06:31 Misoprostol 50 Mcg Tab PO 03/10/24 22:29 50 mcg Q4 KADEEM Administration Past Medical History Medical History Varicella vaccination Depression COVID-19 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 1:30, 1.5 x 1cm Anxiety GI bleed Past Family History Family History Father Hypoglycemia Allergic rhinitis Aunt Breast cancer maternal Brother Asthma Other Anemia Dyslipidemia Denies family history of Ovarian cancer Colorectal cancer Past Surgical History Surgical History S/P breast augmentation H/O colposcopy with cervical biopsy 2018, mary 1 H/O left breast biopsy needle core bx, 2013, fibroadenoma S/P colonoscopy secondary to blood in stools H/O wisdom tooth extraction Social History Smoking Status: Former smoker tobacco type: cigarettes Do You Dip or Chew Tobacco: No Smoking End Date: six years ago Hx Alcohol Use: No Hx Substance Use: No substance use type: former substance user Substance Use Type Other:: medical marijuana prior to Physical Exam Vital Signs Last Vital Signs Temp 98.1 F 02/10/24 03:33 Pulse 91 H 02/10/24 07:25 Resp 18 02/10/24 03:33 BP 133/87 02/10/24 07:25 Pulse Ox 96 02/10/24 07:25 Testing Laboratory Results 02/09/24 09:04 02/09/24 09:04
[2024-02-10] MEDS: LIDOCAINE 2%/EPINEPHRINE 1:200,000 20 ML PF EPI STA (07:49)
[2024-02-10] MEDS: fentaNYL citrate PF 100 MCG/2 ML VIAL EPI PRN (07:49)
[2024-02-10] MEDS: BUPIVACAINE 0.25% PF 30 ML VIAL EPI PRN (07:49)
[2024-02-10] MEDS: fentANYL 2 MCG/ML BUPIVacaine 0.125%-NSS 100ML BAG EPI PRN (07:50)
[2024-02-10] MEDS: ONDANSETRON INJ 2 MG/ML 2 ML VIAL IV PRN (07:51)
[2024-02-10] MEDS: LACTATED RINGER'S 1,000 ML IV SCH (08:18)
[2024-02-10] MEDS ORDERED: NURSING L&D Epidural Breakthrough Pain Update ONE (08:32)
[2024-02-10] MEDS: SODIUM CHLORIDE 0.9% PF INJ 10 ML VIAL EPI PRN (08:34)
[2024-02-10] MEDS: ePHEDrine sulfate 50 MG/ML AMP ONE (08:37)
[2024-02-10] MEDS: fentaNYL citrate PF 100 MCG/2 ML VIAL ONE (08:37)
[2024-02-10] MEDS: SODIUM CHLORIDE 0.9% PF INJ 10 ML VIAL ONE (08:37)
[2024-02-10] MEDS: BUPIVACAINE 0.25% PF 30 ML VIAL ONE (08:37)
[2024-02-10] MEDS: fentANYL 2 MCG/ML BUPIVacaine 0.125%-NSS 100ML BAG ONE (08:37)
[2024-02-10] MEDS: LIDOCAINE 2%/EPINEPHRINE 1:200,000 20 ML PF ONE (08:38)
[2024-02-10] MEDS: BUPIVACAINE 0.25% PF 30 ML VIAL EPI STA (08:38)
[2024-02-10] MEDS: fentaNYL citrate PF 100 MCG/2 ML VIAL EPI STA (08:38)
[2024-02-10] MEDS: SODIUM CHLORIDE 0.9% PF INJ 10 ML VIAL EPI STA (08:38)
--- NOTE | 2024-02-10 09:09 | Anesthesia Procedure Note ---
Date of Service February 10, 2024 Anesthesia Epidural Re-Dose Vital Signs Temp Pulse Resp BP Pulse Ox 98.1 F 75 18 122/63 100 02/10/24 03:33 02/10/24 09:05 02/10/24 09:01 02/10/24 08:40 02/10/24 09:05 Notes Pain Intensity: 9 Dilatation (cm): 5.5 Effacement (%): 70 Called by nursing to evaluate epidural as the patient is having increased pain. The epidural was re-dosed with the following medications (all medications via epidural route) after negative aspiration of the epidural catheter for CSF/HEME. 2% Lidocaine with epinephrine (5ml) via epidural and 100 mcg of fentanyl After Epidural Re-Dose Mental Status: alert / awake / arousable Pain: improving with treatment Airway Patency, RR, SpO2: stable & adequate BP & HR: stable & adequate
[2024-02-10] MEDS ORDERED: OXYTOCIN 30 UNITS/NSS 30 UNITS/500 ML BAG IV PRN (09:34)
--- NOTE | 2024-02-10 09:34 | Labor Progress Brief Note ---
Date of Service February 10, 2024 Assessment & Plan Admission and Anticipated Discharge Date Admission Date: February 09, 2024 Physical Exam Genitourinary: Manual OB Exam: + cervical dilation 4 cm and 5 cm, + cervical effacement 100%, + station 0 and + amniotic fluid (AROM with Amni-hook clear fluid) clear OB Exam Monitor Tracing: + external FHT monitor used, + external uterine monitor used, + category I and + normal FHT variability will augment ctx with Oxytocin Results & Data Vital Signs (Past 12 Hours) Vital Signs Temp Pulse Resp BP Pulse Ox 02/10/24 09:30 94 H 98 02/10/24 09:27 82 112/60 02/10/24 09:25 90 98 02/10/24 09:20 87 97 02/10/24 09:15 83 97 02/10/24 09:13 78 117/55 L 02/10/24 09:10 77 100 02/10/24 09:07 37.0 C 75 116/56 L 02/10/24 09:05 75 100 02/10/24 09:01 78 18 94 02/10/24 09:00 81 100 02/10/24 08:55 80 100 02/10/24 08:50 80 98 02/10/24 08:49 85 93 02/10/24 08:45 80 98 02/10/24 08:42 80 94 02/10/24 08:40 82 122/63 99 02/10/24 08:36 81 126/63 02/10/24 08:35 99 02/10/24 08:35 88 02/10/24 08:35 89 89 L 02/10/24 08:31 18 02/10/24 08:31 18 02/10/24 08:30 77 99 02/10/24 08:25 82 99 02/10/24 08:24 76 113/60 02/10/24 08:20 83 99 02/10/24 08:19 86 131/81 02/10/24 08:15 83 99 02/10/24 08:14 89 124/75 02/10/24 08:10 98 02/10/24 08:10 84 02/10/24 08:10 86 129/77 02/10/24 08:05 89 97 02/10/24 08:04 89 126/78 02/10/24 08:00 93 H 18 98 02/10/24 07:59 88 124/68 02/10/24 07:58 18 02/10/24 07:58 18 02/10/24 07:56 18 02/10/24 07:56 18 02/10/24 07:55 91 H 98 02/10/24 07:54 18 02/10/24 07:54 18 02/10/24 07:53 83 126/73 02/10/24 07:52 18 02/10/24 07:52 18 02/10/24 07:51 93 H 122/71 02/10/24 07:50 18 02/10/24 07:50 18 02/10/24 07:50 97 02/10/24 07:50 86 02/10/24 07:50 87 128/80 02/10/24 07:48 92 H 18 123/95 02/10/24 07:45 111 H 98 02/10/24 07:44 109 H 91 02/10/24 07:40 100 H 100 02/10/24 07:35 100 H 99 02/10/24 07:30 87 96 02/10/24 07:25 96 02/10/24 07:25 91 H 02/10/24 07:25 88 133/87 02/10/24 03:33 36.7 C 82 18 109/65 02/09/24 23:09 36.6 C 18 02/09/24 23:03 90 02/09/24 23:03 117/65
[2024-02-10] MEDS: OXYTOCIN 30 UNITS/NSS 30 UNITS/500 ML BAG IV PRN (12:00)
--- NOTE | 2024-02-10 12:18 | Delivery Summary ---
Vaginal Delivery Summary Date of Service February 10, 2024 Vaginal Delivery Summary Normal spontaneous vaginal delivery of a live female over intact perineum with delayed cord clamping Apgars were 8 and 9 weight is pending. Cord blood was obtained placenta was then delivered spontaneously and intact and submitted in its entirety noted was a velamentous insertion of the cord. No tears noted. QBL 50 mL final sponge and instrument count are correct mom and baby stable.
--- NOTE | 2024-02-10 12:22 | Anesthesia Procedure Note ---
Date of Service February 10, 2024 Anesthesia Post Epidural Note Vital Signs Vital Signs: Temp Pulse Resp BP Pulse Ox 98.6 F 100 H 18 132/89 99 02/10/24 09:07 02/10/24 12:11 02/10/24 12:10 02/10/24 12:11 02/10/24 12:00 Pain Intensity Lower Abdomen: Pain Intensity: 9 Notes Mental Status: alert / awake / arousable and participated in evaluation Nausea / Vomiting: adequately controlled Pain: adequately controlled Airway Patency, RR, SpO2: stable & adequate BP & HR: stable & adequate Hydration State: stable & adequate Neuraxial Anesthesia: was administered and sensory block is resolving Anesthetic Complications: no major complications apparent and Pt Satisfied with anesthetic care Epidural: Removed without complications and With tip intact
[2024-02-10] MEDS ORDERED: METOCLOPRAMIDE HCL 10 MG TABLET PO PRN (12:31)
[2024-02-10] MEDS ORDERED: ACETAMINOPHEN 325 MG TAB PO PRN (12:31)
[2024-02-10] MEDS ORDERED: bisacodyL 10 MG SUPP PR PRN (12:31)
[2024-02-10] MEDS ORDERED: HYDROCORTISONE ACETATE 25 MG SUPP PR PRN (12:31)
[2024-02-10] MEDS ORDERED: diphenhydrAMINE Capsule 25 MG CAP PO PRN (12:44)
[2024-02-10] MEDS: IBUPROFEN 600 MG TAB PO PRN (13:40)
[2024-02-10] MEDS: BENZOCAINE 20% SPRY 85 APPLN/85 GM CAN EXT PRN (13:41)
[2024-02-10] MEDS: DIPHTHER/TETAN/PERTUS Vaccine (Tdap, Adol/Adult) 0.5mL IM ONE (15:28)
[2024-02-10] MEDS: DOCUSATE SODIUM 100 MG CAP PO SCH (22:12)
[2024-02-11 06:19] LABS: Hematocrit (blood only) 31.1 % (37.0-47.0); Hemoglobin 10.9 g/dl (12.0-16.0); Mean Corpuscular Hemoglobin 31.6 pg (25.0-34.0); Mean Corpuscular Volume 90.1 fL (80.0-100.0); Mean Platelet Volume 10.2 fL (9.4-12.4); Platelet Count 160 K/uL (130-400); RDW Coefficient of Variation 13.2 % (11.5-14.5); RDW Standard Deviation 43.6 fL (36.4-46.3); Red Blood Count 3.45 M/uL (4.20-5.40)
[2024-02-11 06:28] VITALS: TEMP 97.9
[2024-02-11] MEDS: PRENATAL VITAMIN 1 TAB PO SCH (07:51)
[2024-02-11] MEDS: FERROUS SULFATE 325 MG TAB PO SCH (07:51)
[2024-02-11 08:22] VITALS: BP 129/82; PULSE 72; RESP 16; O2SAT 97
[2024-02-11] MEDS ORDERED: NON-FORMULARY MEDICATION (Pnv Cmb#95-Ferrous Fumarate-Fa [Prenatal] 28 mg iron- 800 mcg Ta PO SCH (09:00)
--- NOTE | 2024-02-11 10:49 | Obstetrical Progress Note ---
Date of Service February 11, 2024 Subjective Ambulation: ambulating normally Voiding: no voiding problems Passing Gas:: Yes Diet Tolerance:: regular diet Lochia:: Small Feeding Type:: breast feeding Current Pain Level(1-10): 0 doing well. wants to go home today. Physical Exam Constitutional WD/WN, vitals as above Gastrointestinal (Abdomen) Inspection/Auscultation: abdomen normal to inspection Musculoskeletal Extremities: extremities normal to inspection Skin no rashes, warm and dry Neurologic patellar DTR's 2+ bilat, sensation intact Psychiatric A+Ox3, euthymic affect Results & Data Vital Signs (Past 12 Hours) Vital Signs Temp Pulse Resp BP Pulse Ox O2 Del Method 02/11/24 07:50 36.6 C 72 16 129/82 97 Room Air 02/11/24 03:40 36.6 C 84 18 128/76 99 Room Air 02/11/24 00:15 36.5 C 88 18 130/86 97 Room Air Laboratory Results Laboratory Results - last 72 hr 02/09/24 02/11/24 09:04 05:58 WBC 10.43 9.70 RBC 3.75 L 3.45 L Hgb 12.0 10.9 L Hct 33.7 L 31.1 L MCV 89.9 90.1 MCH 32.0 31.6 MCHC 35.6 35.0 RDW Std Deviation 43.2 43.6 RDW Coeff of Alexia 13.2 13.2 Plt Count 177 160 MPV 10.4 10.2 Sodium 141 Potassium 3.5 Chloride 110 H Carbon Dioxide 24 Anion Gap 7 BUN 9 Creatinine 0.54 L Est Cr Clr Drug Dosing 172.4 eGFR 127.73 BUN/Creatinine Ratio 16.7 Glucose 104 H Calcium 8.9 Total Bilirubin 0.7 AST 23 ALT 14 Alkaline Phosphatase 130 H Total Protein 6.1 Albumin 3.4 Globulin 2.7 Albumin/Globulin Ratio 1.3 Treponema pallidum Ab Negative
[2024-02-11] MEDS ORDERED: bisacodyL 5 MG TABEC PO SCH (20:00)
== END 2024-02-11 13:01 | disposition home or self-care (01) | DRG 807 ==
LOC: 4S1 07:21 → 4E2 02-10 14:50

== ENCOUNTER 2025-01-02 12:43 | Inpatient (IN) ==
--- NOTE | 2025-01-02 13:01 | Emergency Department Note ---
Impression & Plan Depression with suicidal ideation ED Provider Note NAME: MECHELLE GONZALES AGE: 29 SEX: F : 1995 ARRIVES VIA: Walk-In INFORMANT: Patient, ED PROVIDER(S): Chalo Gomes MD CHIEF COMPLAINT: Depression, suicidal ideation MEDICAL DECISION MAKING: Patient presents due to concern for mental wellness concern SI with plan. Blood work was obtained. Blood work shows a normal white count H&H and platelet count. The patient's kidney function is unremarkable. Bilirubin 1.6. Has been slightly elevated in the past. Other LFTs are unremarkable. TSH is normal negative beta-hCG urinalysis shows ketones and blood but no signs of obvious infection. Salicylate Tylenol and alcohol negative. COVID-negative. Patient was he medically cleared seen evaluated by psych rehabilitation case coordinator and referrals made for inpatient treatment. Patient was accepted to 3 S. Discussion w/ other healthcare providers: None Prior /Outside records reviewed: None Differential diagnosis: Mood disorder, infection, hypoglycemia, electrolyte abnormalities, dehydration, medication side effect among others were considered. Diagnostics, as interpreted by me: ECG: None Medical decision rules: Suicide risk severity score Imaging studies: None HPI: Patient presents due to concern for suicidal ideation. The patient states that she did not "smoke" as she normally does in the morning referring to marijuana. The patient states that she has been having some marital issues with her and that the plan is for separation but this has not yet occurred. The patient had been on Lamictal before her but is about 11 months and has had to return to her psychiatrist to start medications. She has been working on a plan was to do this but has not formally seen her. Patient states though that she had a bottle of Tylenol with a plan to overdose on Tylenol this morning. Patient denies any HI or AVH. She states her sleep and appetite been appropriate. She denies any tobacco or alcohol use. She does have young children at home currently who are with her mother. She does feel safe at home. Family ember does have a handgun as well as a shotgun but the hand gets locked up and he is planning on taking the shotgun out of the house. PAST MEDICAL HISTORY: See Below PAST SURGICAL HISTORY: See Below SOCIAL HISTORY: See Below HOME MEDICATIONS: See Below ALLERGIES: See Below VITALS: See Below PHYSICAL EXAMINATION: GENERAL: NAD, non-toxic. EYE EXAM: Normal conjunctiva. PERRL, no anisocoria and EOM's grossly intact w/o pain. OROPHARYNX: Moist mucus membranes, grossly normal dentition. NECK: Trachea midline, no stridor. LUNGS: Clear to auscultation. Normal chest wall mechanics. HEART: NSR, no MRG. ABDOMEN: Abdomen soft, non-tender, no masses, no rebound or guarding. BACK: No CVA TTP. SKIN: No rashes and no bruising. UPPER EXTREMITIES: Upper extremities are grossly normal. LOWER EXTREMITIES: Grossly normal, no edema. NEURO EXAM: Awake and alert, follows commands, no obvious facial asymmetry, normal speech, moves all 4 extremities. Past Med/Surg History Problem List (Updated 01/02/25 @ 14:51 by Chalo Gomes MD) Depression with suicidal ideation (Acute) Post-term , 40-42 weeks of gestation contractions Hyperemesis gravidarum with 8 completed weeks gestation Encounter for supervision of normal in multigravida Encounter for anatomic survey Night terrors, adult Mild dysplasia of cervix (ELLIS I) Medical History Varicella vaccination Depression 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 1:30, 1.5 x 1cm Anxiety GI bleed Surgical History S/P breast augmentation H/O colposcopy with cervical biopsy 2018, ellis 1 H/O left breast biopsy needle core bx, 2013, fibroadenoma S/P colonoscopy secondary to blood in stools H/O wisdom tooth extraction Family History Father Hypoglycemia Allergic rhinitis Aunt Breast cancer maternal Brother Asthma Other Anemia Dyslipidemia Denies family history of Ovarian cancer Prostate cancer Lung cancer Colorectal cancer Social History Smoking Status: Current every day smoker Tobacco Type: Cigarettes Age Started Using Tobacco: 13; Age Quit Using Tobacco: 22; packs per day: 1; Second Hand Exposure: No; Do You Dip or Chew Tobacco: No; Hx Alcohol Use: No Hx Substance Use: No Preferred Language: Divehi Communication Ability: Effective Licensed Psychologist Director Required: No Beliefs That Will Affect Care: None marital status: marital status details: Chevy Sanchez (26) [phone] Current Living Situation: Spouse and Family Current Living Situation Comment: patient lives with and two sons. current occupational status: employed current occupation: [employer] Feels Safe at Home: Yes Childhood Exposure to Second-Hand Smoke: No Diet: regular caffeine: Yes during the past year weight has: decreased > 10 lbs Dental Care, Regularly: Yes Physical Activity Frequency: Daily Seatbelt Use: always Sunscreen Use: Yes Gender Identity: Female Assistive Devices: None Allergies Allergies Allergy/AdvReac Type Severity Reaction Status Date / Time anne Allergy Intermediate Itching Verified 07/20/24 10:51 Home Meds Previous Rx's Medication Instructions Recorded ibuprofen 600 mg tablet 600 mg PO Q6H PRN fever or pain 02/11/24 #30 tabs Results & Data (ED) Vital Signs Vital Signs - 24 hr 01/02/25 12:46 Temperature 36.7 C Temperature Source Temporal Artery Scan Pulse Rate 104 H Respiratory Rate 18 Blood Pressure 130/87 Blood Pressure Mean 101 Pulse Oximetry 99 Oxygen Delivery Method Room Air Sepsis Recent Fever Within 48 Hours No Sepsis New/Unexplained Change in Mental Status N/A Sepsis Action Taken by Nursing No Action Required Home Medications Current Medication List: was personally reviewed by me Laboratory Data Attestation: I reviewed the patient's lab results. 01/02/25 13:02 01/02/25 13:02 Lab Results 01/02/25 01/02/25 Range/Units 13:00 13:02 WBC 8.96 (4.8-10.8) K/ul RBC 4.40 (4.20-5.40) M/uL Hgb 13.0 (12.0-16.0) g/dl Hct 39.1 (37.0-47.0) % MCV 88.9 (80.0-100.0) fL MCH 29.5 (25.0-34.0) pg MCHC 33.2 (32.0-36.0) g/dL RDW Std Deviation 40.7 (36.4-46.3) fL RDW Coeff of Alexia 12.5 (11.5-14.5) % Plt Count 246 (130-400) K/uL MPV 9.7 (9.4-12.4) fL Immature Gran % (Auto) 0.1 % Neut % (Auto) 83.4 % Lymph % (Auto) 12.9 % [place] % (Auto) 3.3 % Eos % (Auto) 0.0 % Baso % (Auto) 0.3 % Neut # (Auto) 7.46 H (1.40-6.50) K/uL Lymph # (Auto) 1.16 L (1.20-3.40) K/uL [place] # (Auto) 0.30 (0.11-0.59) K/uL Eos # (Auto) 0.00 (0.00-0.50) K/uL Baso # (Auto) 0.03 (0.00-0.20) K/uL Immature Gran # (Auto) 0.01 (0.01-0.20) K/uL Sodium 138 (136-145) mmol/L Potassium 3.6 (3.5-5.1) mmol/L Chloride 106 (98-107) mmol/L Carbon Dioxide 27 (21-32) mmol/L Anion Gap 5 (3-11) BUN 14 (6-23) mg/dl Creatinine 0.72 (0.6-1.2) mg/dl Est Cr Clr Drug Dosing 102.8 ml/min eGFR 115.28 BUN/Creatinine Ratio 19.4 (10-20) Glucose 103 H (70-99(Fasting)) mg/dl Calcium 9.3 (8.6-10.3) mg/dl Total Bilirubin 1.6 H (0.2-1.0) mg/dl AST 19 (13-39) U/L ALT 16 (7-52) U/L Alkaline Phosphatase 47 (34-104) U/L Total Protein 7.5 (6.0-8.3) gm/dl Albumin 4.7 (3.4-5.0) gm/dl Globulin 2.8 (2.5-4.0) gm/dl Albumin/Globulin Ratio 1.7 (0.9-2) TSH 0.477 (0.300-4.500) uIu/ml HCG, Qual Negative (Negative) Urine Color Yellow Urine Appearance Clear (Clear) Urine pH 6.0 (4.5-7.5) Ur Specific [place] 1.018 (1.000-1.030) Urine Protein Trace H (Negative) Urine Glucose (UA) Negative (Negative) Urine Ketones 1+ H (Negative) Urine Blood Trace H (Negative) Urine Nitrite Negative (Negative) Urine Bilirubin Negative (Negative) Urine Urobilinogen Negative (Negative) Ur Leukocyte Esterase Negative (Negative) Urine WBC (Auto) 0-5 (0-5) /hpf Urine RBC (Auto) 0-2 (0-2) /hpf U Hyaline Cast (Auto) 0-2 (0-2) /lpf U Epithel Cells (Auto) 0-2 (0-2) /hpf Urine Bacteria (Auto) None Seen (None Seen) Urine Comment Salicylates < 3.0 L (3.0-30) mg/dl Urine Opiates Screen Neg (Neg) Ur Methadone, Qual Neg (Neg) Urine Fentanyl Screen Neg (Neg) Acetaminophen < 3 L (10-30) ug/ml Urine Barbiturates Neg (Neg) Ur Phencyclidine (PCP) Neg (Neg) U Amphetamin/Meth Scrn Neg (Neg) MDMA (Ecstasy) Screen Neg (Neg) U Benzodiazepines Scrn Neg (Neg) Ur Cocaine Metabolite Neg (Neg) U Marijuana (THC) Screen Pos H (Neg) Ethyl Alcohol mg/dL < 10.0 (<10.0) mg/dl SARS-CoV-2, RNA, NAAT NEGATIVE (NEGATIVE) Discharge Plan Visit Data Chief Complaint: Mental Health Evaluation Stated Complaint: ED Provider: Chalo Gomes Discharge Problem: Depression with suicidal ideation Patient Disposition: Admitted As Inpatient Condition: Good Forms Stand Alone Forms: [facility], Suicide Prevention Resources Prescriptions Prescriptions: No Action ibuprofen 600 mg Tablet 600 mg PO Q6H PRN (Reason: fever or pain) Qty: 30 2RF Referrals Referrals: Leo Anaya DO [Primary Care Provider] -
[2025-01-02 13:25] LABS: Hematocrit (blood only) 39.1 % (37.0-47.0); Hemoglobin 13.0 g/dl (12.0-16.0); Immature Granulocytes # (auto) 0.01 K/uL (0.01-0.20); Immature Granulocytes % (auto) 0.1 %; Mean Corpuscular Hemoglobin 29.5 pg (25.0-34.0); Mean Corpuscular Volume 88.9 fL (80.0-100.0); Platelet Count 246 K/uL (130-400); RDW Standard Deviation 40.7 fL (36.4-46.3); Red Blood Count 4.40 M/uL (4.20-5.40); White Blood Count 8.96 K/ul (4.8-10.8)
[2025-01-02 13:28] LABS: Appearance Urine Clear (Clear); Bacteria Urine Automated None Seen (None Seen); Cast Urine Automated 0-2 /lpf (0-2); Epithelial Cell Urine Auto 0-2 /hpf (0-2); Glucose Urine UA Negative (Negative); RBC Urine Automated 0-2 /hpf (0-2); WBC Urine Automated 0-5 /hpf (0-5)
[2025-01-02 13:43] LABS: Alanine Aminotransferase 16.0 U/L (7-52); Albumin Globulin Ratio 1.7 (0.9-2); Albumin Level 4.7 gm/dl (3.4-5.0); Alkaline Phosphatase 47.0 U/L (34-104); Anion Gap 5.0 (3-11); Bilirubin,Total 1.6 mg/dl (0.2-1.0); Blood Urea Nitrogen 14.0 mg/dl (6-23); Calcium 9.3 mg/dl (8.6-10.3); Carbon Dioxide 27.0 mmol/L (21-32); Chloride 106.0 mmol/L (98-107); Creatinine Clr Calc Pharmacy 102.8 ml/min; Globulin 2.8 gm/dl (2.5-4.0); Glucose 103.0 mg/dl (70-99(Fasting)); Potassium 3.6 mmol/L (3.5-5.1); Pregnancy Test, Serum Negative (Negative); Sodium 138.0 mmol/L (136-145); Total Protein 7.5 gm/dl (6.0-8.3)
[2025-01-02 13:57] LABS: Thyroid Stimulating Hormone 0.477 uIu/ml (0.300-4.500)
[2025-01-02 14:03] LABS: Acetaminophen < 3 ug/ml (10-30); Salicylate < 3.0 mg/dl (3.0-30)
[2025-01-02 14:03] LABS: Amphetamines+Metham, Urine Neg (Neg); MDMA (Ecstacy), Urine Neg (Neg); Marijuana, Urine Pos (Neg)
[2025-01-02] MEDS ORDERED: SODIUM CHLORIDE 0.65% NA SOLN 45 ML (OCEAN) PRN (15:13)
[2025-01-02] MEDS ORDERED: BISMUTH SUBSALICYLATE 262 MG CHEW PO PRN (15:13)
[2025-01-02] MEDS ORDERED: MAGNESIUM HYDROXIDE SUSP 30 ML UDC PO PRN (15:13)
[2025-01-02] MEDS ORDERED: ACETAMINOPHEN 325 MG TAB PO PRN (15:13)
[2025-01-02] MEDS ORDERED: ALUMINUM/MAGNESIUM SUSP 30 ML UDC PO PRN (15:13)
[2025-01-02 16:05] VITALS: O2SAT 98
[2025-01-02] MEDS: LORazepam 1 MG TAB PO STA (17:55)
[2025-01-03 06:23] VITALS: RESP 16; TEMP 98.1
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
[2025-01-03] MEDS: lamoTRIgine 25 MG TAB PO SCH (12:42)
[2025-01-04 06:29] VITALS: BP 102/63
--- NOTE | 2025-01-04 09:54 | Discharge Summary ---
Date of Service January 04, 2025 History of Present Illness This patient is not previously known to this unit. Since she self-presented to the emergency room after making suicidal statements while holding a bottle of Tylenol, and stating that she should take it, which occurred in the presence of her . They have been having increasing marital discord over the past several months. Patient is also 11 months , and did not restart Lamictal, which she usually takes in the fall months to help with mood cycling that tends to be worse this time of year. Her encouraged her to come to the emergency room, she did sign in on a 201. However, quickly after admission, she did also signed a 72-hour notice which expires 01/05 at 1730. She had a brief period of distress yesterday evening, due to being away from her for the night. She did have 1 dose of Ativan 1 mg as needed. Since then, she primarily isolated in her room and slept most of the evening. Indeed she slept 10.5 hours overnight. She has been awake, attending to ADLs independently this morning, and attended group. I met with the patient in her room privately. She described a longstanding pattern of hypomania in the fall months, usually December, with a crash into depression usually in January. She acknowledges the depression started early this year, and attributes it to several factors. First, she tends to only take Lamictal in the fall months, but forgot to follow-up with her outpatient prov ider in the midst of being , and did not restart that medication as planned. Additionally, there were some questions of fidelity from her , and then patient's own infidelity led to marital conflict reaching a peak this past weekend. She states that usually around December, she notices that she is more impulsive, which sometimes could involve increased spending or hypersexuality. She also usually feels more confident, wears more make-up, is more excitable and irritable. Sometimes she also increases substance use, including medical marijuana which she says "I use appropriately" when not hypomanic. She describes a typical post manic crash into depression, which is usually not this severe. although she did make suicidal statement yesterday, she says to some degree this is chronic for her. She recalls having suicidal ideation as young as age 3, and says even when well, "once a week I think of it." Usually it remains passive such as "what if I was just ?". However in the wake of the conflict, it was more intense and active. She did not actually attempt to take the overdose or harm herself. She says she is future oriented and hopes to get back into treatment upon discharge from here. She feels the suicidal ideation is already improved just with time. At no point did she experience psychosis. She did not have any plan, intent or ideation to harm a nyone else. She had no delusions or paranoia either. For additional context, this recent stress is occurring on the tail end of a very challenging . She delivered 11 months ago in January following a complicated by severe hyperemesis gravidarum. She was hospitalized 8 times during that , and and ultimately had to have daily infusions. Her weight was stuck at only 118 pounds for the whole first 20 weeks of gestation. She says "that was very traumatic" And "I was deeply depressed, but I was in such a survival mode." She does feel the depression improved some throughout the course of the year, but has been worsening again recently, as described above. She has had no residual nausea or vomiting after delivery. Her daughter was born healthy and has had a normal development. She feels she is bonding well. She has been breast-feeding, but was planning to wean soon. Also reports that her 4-year-old twin sons have adjusted well to having a baby around. Physical Exam Psychiatric Orientation: alert, oriented x 3 and cooperative Apperance: appropriately dressed and appropriately groomed Eye Contact: good eye contact Motor Behavior: steady gait and station and no abnormal motor movements Speech: normal rate/rhythm/volume of speech Affect: euthymic affect and mood congruent with affect euthymic Thought Process: goal directed thought process, linear/logical thought process and clear/coherent thought process Thought Content: reality based without delusions Suicidal Thoughts: denies suicidal thoughts, denies suicidal plan and denies suicidal intent Homicidal Thoughts: denies homicidal thoughts, denies homicidal plan and denies homicidal intent Hallucinations: no auditory hallucinations and no visual hallucinations Cognition: recent memory grossly intact, remote memory grossly intact, attention grossly intact and language grossly intact Estimated Intelligence: average estimated intelligence and consistent with education level Insight: good insight Judgment: good judgement Vital Signs (Past 24 Hours) Last Vital Signs Temp 36.7 C 01/04/25 06:27 Pulse 95 H 01/04/25 06:28 Resp 16 01/04/25 06:27 BP 102/63 01/04/25 06:28 Pulse Ox 98 01/02/25 15:52 O2 Del Method Room Air 01/02/25 15:52 A physical exam was performed in the ED by Dr. Chalo Gomes for the purposes of medical clearance. I accept that physical as correct and adequate for the purposes of the inpatient physical exam. Principal Diagnosis Bipolar 2 disorder, PTSD Psychiatric Data See daily stay summary. In short, safety was maintained and the patient was cooperative with care. Medication changes included initiation of Lamictal and they tolerated this well. A family session was held and safety plan was completed prior to discharge. Day of Discharge Assessment Today the patient voices readiness for discharge. They note improvement in mood and anxiety. They deny thoughts of harm to self or others. Thoughts remain organized and they are clinically improved from admission. There is no evidence of psychosis. They improved in the hospital with support and medication adjustments. They agree to take medications as prescribed and keep follow-up appointments. At the time of the discharge they are deemed to be stable and appropriate for outpatient level of care. They are not deemed to be at imminent risk of harm to self or others. They are aware of emergency and crisis services. Knows to call 911 or go to nearest emergency care center if in a crisis which cannot be handled as an outpatient. Transition of Care Transition Of Care Record: was reviewed with the patient Advance Directives Advance Directives Information Provided: Yes Advance Directives: No Mental Health Advance Directive: No Advance Directives on File: No Living Will: No Power of Sexologist: No Advance Directives Reason:: Declines as Mental Health Visit. Suicide Risk Level Suicide Risk Level Comments: Acute risk is low given improvement in mood and denial of SI, lack of access to lethal means, and improved hopefulness. She also reports improved marital discord. Chronic risk is moderate given some non-modifiable risk factors: hx of chronic SI, , hx of suicide attempt, and past hospitalization, but also with protective factors including responsible for minor children, , supportive family and good psychological insight. Counseled on ways to reduce acute and chronic risk including engaging with outpatient providers, using safety plan if needed, utilizing supports, taking medication, and using coping skills. Modifiable risk factors of SI and depression were addressed during hospitalization through development of new coping skills, support meeting, safety planning, and medication adjustments. Risk Factors Assessment Male: No : Yes Do You Have Access To A Gun?: No ( There are guns in the home, but is securing them) Health Problems: Yes Mental Health Diagnoses: Yes Substance Use Disorders: Yes Previous Attempt: Yes Family History of Suicide: No Previous Psychiatric Hospitalization: Yes Hopelessness: No Protective Factors Assessment Hoahaoism Beliefs: No : Yes Responsible for Young Children: Yes Employed: Yes ([employer]) Stable Relationships: Yes Supportive Family: Yes Good Rapport with Provider: Yes Total Time Total Time Spent: Greater Than 30 Minutes Total Time Includes: Examination of the patient, Discharge Planning, Medication Reconciliation and As well as (documentation and team meeting) Discharge Data Lab Results 01/02/25 01/02/25 13:00 13:02 WBC 8.96 RBC 4.40 Hgb 13.0 Hct 39.1 MCV 88.9 MCH 29.5 MCHC 33.2 RDW Std Deviation 40.7 RDW Coeff of Alexia 12.5 Plt Count 246 MPV 9.7 Immature Gran % (Auto) 0.1 Neut % (Auto) 83.4 Lymph % (Auto) 12.9 [place] % (Auto) 3.3 Eos % (Auto) 0.0 Baso % (Auto) 0.3 Neut # (Auto) 7.46 H Lymph # (Auto) 1.16 L [place] # (Auto) 0.30 Eos # (Auto) 0.00 Baso # (Auto) 0.03 Immature Gran # (Auto) 0.01 Sodium 138 Potassium 3.6 Chloride 106 Carbon Dioxide 27 Anion Gap 5 BUN 14 Creatinine 0.72 Est Cr Clr Drug Dosing 102.8 eGFR 115.28 BUN/Creatinine Ratio 19.4 Glucose 103 H Calcium 9.3 Total Bilirubin 1.6 H AST 19 ALT 16 Alkaline Phosphatase 47 Total Protein 7.5 Albumin 4.7 Globulin 2.8 Albumin/Globulin Ratio 1.7 TSH 0.477 HCG, Qual Negative Urine Color Yellow Urine Appearance Clear Urine pH 6.0 Ur Specific Morley 1.018 Urine Protein Trace H Urine Glucose (UA) Negative Urine Ketones 1+ H Urine Blood Trace H Urine Nitrite Negative Urine Bilirubin Negative Urine Urobilinogen Negative Ur Leukocyte Esterase Negative Urine WBC (Auto) 0-5 Urine RBC (Auto) 0-2 U Hyaline Cast (Auto) 0-2 U Epithel Cells (Auto) 0-2 Urine Bacteria (Auto) None Seen Urine Comment Salicylates < 3.0 L Urine Opiates Screen Neg Ur Methadone, Qual Neg Urine Fentanyl Screen Neg Acetaminophen < 3 L Urine Barbiturates Neg Ur Phencyclidine (PCP) Neg U Amphetamin/Meth Scrn Neg MDMA (Ecstasy) Screen Neg U Benzodiazepines Scrn Neg Ur Cocaine Metabolite Neg U Marijuana (THC) Screen Pos H Ethyl Alcohol mg/dL < 10.0 SARS-CoV-2, RNA, NAAT NEGATIVE Hospital Course (1) Bipolar 2 disorder: (2) Post traumatic stress disorder (PTSD): Plan 01/04/25: Pt tended to ADLs appropriately and attended/participated in groups. She continues to report improved mood and denies SI since admission. She denied any adverse effects to newly restarted Lamictal (and has never had AEs before). Reports she and have had "really healthy conversations" over the past 2 days about scheduling self-care time for both of them, and they plan to seek couples counseling after discharge. She is looking forward to "holding my babies" upon discharge. Follow up appointments were scheduled. Braulio is booking into March 2025, so pt will see PCP in the interim. Therapist will be calling pt directly to schedule. 01/03/25: The patient was admitted to the [facility] on q15 min checks (behavioral with suicide precautions) for safety. The patient will participate in group, recreational, and milieu therapies and will be offered additional individual and family sessions as clinically appropriate. New medications initiated: Lamictal 25 mg daily Continue the following home medications: none The following PRN medications will be started as well: hydroxyzine 25 mg as needed anxiety, or 50 mg nightly as needed Mental Health & Subst Abuse Tx Psychiatrist Name of Psychiatrist: Braulio Groves-Fatemeh Elizondo Psychiatrist's Date Of Appointment With Psychiatric Provider: 03/22/2025 Time of Appointment with Psychiatrist: 10:40a Psychiatric Appointment Comment: [address], [place] [address] Therapist Name of Therapist: Patricia Bustillo Therapist's Therapy Appointment Comment: Referral submitted, therapist will contact you directly for scheduling 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 Anaya Primary Care Date of Future Appointment with PCP: 01/11 Time of Appointment with PCP: 9:30am Provider Appointment Comment: You will see [facility] at [address] Contact Information Discharge Discharge Address: [address] [facility] [address] Discharge Plan Discharge Items Patient Disposition: Home - Self-Care Reason For Visit: UNSPECIFIED DEPRESSIVE DISORDER Discharge Diagnosis: Bipolar 2 disorder, PTSD Condition on Discharge: Good Activity: Resume your previous activity Non-emergency contact: Primary Care Provider, Psychiatrist and Therapist Call non-emergency contact if: you have any medication questions and your symptoms worsen Follow-up/Referrals: Leo Anaya, [Primary Care Provider] - Diet: Regular Addtl Attending Provider Instructions: SPECIAL CARE INSTRUCTIONS: 1. Follow through with your scheduled aftercare appointments. If unable to keep an appointment, please call to reschedule. 2. Take your medication only as prescribed. Medication should not be changed or stopped without the approval of your doctor. In the event of worsening symptoms or concerns about side effects, contact your doctor immediately. 3. Utilize new healthy coping skills, anger management skills, and stress management skills learned during your hospitalization. Journal feelings and process them with a support person. Identify stressors or situations that may result in relapse, deterioration or inappropriate behaviors and develop a plan to deal with those issues. 4. If your coping skills are ineffective and you are in crisis, contact your outpatient providers for direction. If unable to reach your providers, please call the [facility] CRISIS LINE AT , go to the [facility] walk-in center at [address], [address], [place], or go to the closest Emergency Room. 5. Avoid alcohol and un-prescribed drugs. 6. You have been provided with the Mental Health Advance Directives Pamphlet for your review. 7. Your condition is stable for discharge to outpatient level of care, but recovery is an ongoing process. Ifthoughts to harm yourself or others return, follow the safety plan developed during your stay. Planning for a safe return home includes securing weapons. Our treatment team recommends weaponsbe removed from the home until your outpatient provider reassesses your progress. In rare cases where the items themselvescannot be removed, guns and ammunitionshould be secured separatelyand keys stored by a reliable personoutside of the home. If you were admitted on an involuntary commitment, the police or other legal authorities may be involved in this process. AFTERCARE APPOINTMENTS: * Please call your insurance company prior to your scheduled appointment to confirm your aftercare providers are covered. Take your insurance information to your appointments. WHO TO CALL AND WHEN: Medical Emergencies: For questions or emergencies related to your hospital stay, please contact the Inpatient Behavioral Health Unit at [phone]. A department clinician is on-call 07/10 for the Behavioral Health Unit for emergencies At any time you feel your situation is an emergency, you may also call 911 immediately. Pending Studies at Discharge: No Stand-Alone Forms: My [facility] [employer], Smoking Cessation Medications and DC Order Prescriptions: New lamotrigine [Lamictal] 25 mg Tablet See Rx Instructions .ROUTE .COMPLEX Qty: 60 0RF Rx Instructions: Take 1 tab daily x 1 week, then 2 tab daily after that. Discontinued ibuprofen 600 mg Tablet 600 mg PO Q6H PRN (Reason: fever or pain) Qty: 30 2RF Discharge Orders: Discharge Order (Routine); Ordered 01/04/25 Ordered By: Kadi Estrada Admission Data Admit Date/Time: 01/02/25 15:13 Attending Provider: Kadi Estrada Admit Provider: Kadi Estrada Primary Care Provider: Leo Anaya Other Interventions: Discharge Summary Assessment (RN) Last Done: 01/04/25 09:59 Coding Level of Care Code 37851 D/C day mgmt > 30 min Diagnoses Bipolar 2 disorder F31.81 Post traumatic stress disorder (PTSD) F43.10
[2025-01-04 10:06] VITALS: PULSE 96
[2025-01-05 11:17] LABS: Marijuana Quant, GCMS Urine 2538 ng/mL (<5)
== END 2025-01-04 11:31 | disposition home or self-care (01) | DRG 885 ==
LOC: ED 12:43 → 3S 15:13 → ED 15:34